=== PATIENT | female | born 1990 | race Caucasian/White ===

== ENCOUNTER 2017-03-06 14:13 | Inpatient (IN) | payer MEDICAID ==
[2017-03-06] VITALS (9 sets, daily range): BP systolic 76–97; BP diastolic 41–65
[~2017-03-06] VITALS: Ht 160 cm; Wt 43.2 kg
--- NOTE | 2017-03-06 14:58 | Emergency Room Report ---
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 Past Surgical History: unable to obtain Pertinent Family History: unable to obtain Social History: Denies: smoking, alcohol use, drug use Now: No Immunizations: UTD Reviewed Nursing Documentation: PMH: Agreed, PSxH: Agreed Nursing Documentation-PMH Past Medical History: No History, Except For History Of Psychiatric Problem: Yes - General Anxiety Disorder Hx Neurological Problems: Yes - MS Review of Systems All Other Systems: limited - patient not contributing Physical Exam Vital Signs Date Time Temp Pulse Resp B/P (MAP) Pulse Ox O2 Delivery O2 Flow Rate FiO2 03/06/17 14:29 113 16 137/83 96 Room Air Sp02 EP Interpretation: reviewed, normal General Appearance: normal inspection, well appearing, no apparent distress, alert, GCS 15, non-toxic, cachetic, thin, other - Intermittently combative and tearful Head: normocephalic, atraumatic Eyes: bilateral eye PERRL, bilateral eye EOMI ENT: normal ENT inspection, hearing grossly normal, normal pharynx, no angioedema, normal voice Neck: normal inspection, full range of motion, supple, thyroid normal, no meningismus, no bony tend Respiratory: normal inspection, lungs clear, normal breath sounds, no respiratory distress, no retraction, no wheezing Cardiovascular #1: regular rate, rhythm, no edema Gastrointestinal: normal inspection, normal bowel sounds, non tender, soft, no guarding, no hernia Genitourinary: no CVA tenderness Musculoskeletal: normal inspection, back normal, normal range of motion, Natalie' s Sign negative Neurologic: normal inspection, alert, oriented x3, responsive, frame aligner III-XII nml as tested, motor strength/tone normal, speech normal Psychiatric: normal inspection, judgement/insight normal, mood/affect normal Skin: normal inspection, normal color, no rash Medical Decision Making Diagnostic Impression: Primary Impression: Failure to thrive Qualified Codes: R62.7 - Adult failure to thrive Additional Impressions: NUBIA (acute kidney injury) Behavioral change UTI (urinary tract infection) Qualified Codes: N30.00 - Acute cystitis without hematuria ER Course Patient repeatedly combative to staff. De-escalation methods were unsusccessful Tried low dose haldol/ativan with only minor sedation. Was given additional dose Looks dehydrated clinically, was given NS and D5LR for hydration Labs: No leuks. H&h stable. Mild NUBIA Was hydrated in ED Urine: + for UTI Utox: negative Empiric Abx given Endorsed to Dr Jean for med/surg admission at 544p, EKG Diagnostic Results Rate: normal, other - PACs Rhythm: other - RAD, RVH, isolated Lead 3 TWI ASA given to the pt in ED: No Rhythm Strip Diag. Results EP Interpretation: yes Rate: 77 Rhythm: NSR, no PVC's, no ectopy Last Vital Signs Date Time Temp Pulse Resp B/P (MAP) Pulse Ox O2 Delivery O2 Flow Rate FiO2 03/06/17 14:29 113 16 137/83 96 Room Air Status: improved Disposition: ADMITTED INPATIENT Condition: Serious VANITA FERNANDES M.D. Mar 06, 2017 14:58
[2017-03-06] MEDS ORDERED: DiphenhydrAMINE 50mg/ml Inj IM ONE (15:00)
[2017-03-06] MEDS ORDERED: LORazepam Inj 2mg/ml 1ml IV ONE ×2 (15:00→19:45)
[2017-03-06] MEDS ORDERED: LORazepam Inj 2mg/ml 1ml IM ONE ×2 (15:00→16:00)
[2017-03-06] MEDS ORDERED: Haloperidol 5mg/ml Inj IM ONE ×2 (15:00→16:00)
--- NOTE | 2017-03-06 16:43 | Diagnostic Imaging Report ---
Indication: Shortness of breath Technique: One view of the chest Comparison: none Findings: There are thoracic and lumbar spinal fusion rods and evidence of extensive osseous fusion. Lungs and pleural spaces are clear. The heart is borderline enlarged. Impression: No acute process
[2017-03-06 17:33] LABS: ALANINE AMINOTRANSFERASE 10 U/L (3-33); ALBUMIN/GLOBULIN RATIO 1.6 (1.0-2.7); ANION GAP 16 (5-15); ASPARTATE AMINO TRANSFERASE 29 U/L (5-40); BASOPHILS % (AUTO) 0.9 % (0.0-2.0); CALCIUM 9.7 mg/dL (8.6-10.2); CARBON DIOXIDE 26 mEQ/L (20-30); CHLORIDE 103 mEQ/L (98-107); EOSINOPHILS % (AUTO) 0.3 % (0.0-3.0); GLOMERULAR FILTRATION RATE > 60 mL/min (>60); HEMOLYSIS 7; LYMPHOCYTES % (AUTO) 33.1 % (20.0-45.0); MEAN CORPUSCULAR HEMOGLOBIN 34.3 PG (27.0-31.0); MEAN CORPUSCULAR HGB CONC 35.8 G/DL (32.0-36.0); MEAN CORPUSCULAR VOLUME 96 FL (80-99); MEAN PLATELET VOLUME 8.4 FL (6.5-10.1); MONOCYTES % (AUTO) 7.1 % (1.0-10.0); NEUTROPHILS % (AUTO) 58.6 % (45.0-75.0); PLATELET COUNT 214 K/UL (150-450); POTASSIUM 3.6 mEQ/L (3.4-4.9); RED BLOOD COUNT 4.37 M/UL (4.20-5.40); SODIUM 145 mEQ/L (135-145); TOTAL PROTEIN 7.9 g/dL (6.6-8.7); WHITE BLOOD COUNT 7.8 K/UL (4.8-10.8)
[2017-03-06] MEDS ORDERED: Dextrose 5%/Lactated Ringer's 1,000 ML IV STA (17:47)
[2017-03-06 17:56] LABS: APPEARANCE,URINE VERY CLOUDY; KETONES,URINE 2+ (NEGATIVE); LEUKOCYTE ESTERASE ,URINE 1+ (NEGATIVE); NITRITE,URINE NEGATIVE (NEGATIVE); PH,URINE 6 (4.5-8.0); PROTEIN,URINE 1+ (NEGATIVE); UROBILINOGEN,URINE 1 MG/DL (0.0-1.0)
[2017-03-06 18:14] LABS: AMORPHOUS SEDIMENT,UR FEW /LPF; BACTERIA,URINE MODERATE /HPF; MUCUS,URINE MODERATE /LPF (NONE/OCC); SQUAMOUS EPITHELIAL CELL,UR FEW /LPF (NONE/OCC)
[2017-03-06] MEDS ORDERED: cefTRIAXone 1 GM in D5W 55 ML IVPB ONE (18:15)
[2017-03-06] MEDS ORDERED: UNOBMED (19:11)
[2017-03-06] MEDS ORDERED: LORazepam Inj 2mg/ml 1ml IV PRN (21:00)
[2017-03-06] MEDS: D5NS 1,000 ML IV SCH (21:48)
[2017-03-06] MEDS: Heparin 5000 units/ml inj SUBQ SCH (21:50)
[2017-03-06] MEDS ORDERED: Sodium Chloride 500ML 500 ML IV PRN (22:15)
[2017-03-06] MEDS ORDERED: Sodium Chloride 500ML 500 ML IV ONE (22:30)
[2017-03-07] VITALS (7 sets, daily range): BP systolic 82–109; BP diastolic 49–63
[2017-03-07] MEDS: D5NS 1,000 ML IV SCH ×2 (06:52→17:00)
[2017-03-07 06:57] LABS: MEAN CORPUSCULAR HGB CONC 33.8 G/DL (32.0-36.0); MEAN CORPUSCULAR VOLUME 98 FL (80-99); MEAN PLATELET VOLUME 8.6 FL (6.5-10.1); PLATELET COUNT 164 K/UL (150-450); RED BLOOD COUNT 3.75 M/UL (4.20-5.40); RED CELL DISTRIBUTION WIDTH 11.8 % (11.6-14.8); WHITE BLOOD COUNT 5.9 K/UL (4.8-10.8)
[2017-03-07 07:00] LABS: HEMOGLOBIN A1C 5.1 % (< 6.0)
[2017-03-07 07:10] LABS: ANION GAP 12 (5-15); CALCIUM 8.3 mg/dL (8.6-10.2); CARBON DIOXIDE 23 mEQ/L (20-30); CHLORIDE 112 mEQ/L (98-107); CHOLESTEROL 141 mg/dL (< 200); CHOLESTEROL/HDL RATIO 3.3 (3.3-4.4); CREATININE 0.8 mg/dL (0.5-0.9); GLOMERULAR FILTRATION RATE > 60 mL/min (>60); HEMOLYSIS 6; LDL CHOLESTEROL CALC 85 mg/dL (60-99); POTASSIUM 3.9 mEQ/L (3.4-4.9); SODIUM 147 mEQ/L (135-145)
[2017-03-07] MEDS: Heparin 5000 units/ml inj SUBQ SCH ×2 (09:44→21:00)
[2017-03-07 10:13] LABS: BAND NEUTROPHILS % (MANUAL) 0 % (0-8); BASOPHILS % (MANUAL) 1 % (0-2); EOSINOPHILS % (MANUAL) 0 % (0-3); LYMPHOCYTES % (MANUAL) 54 % (20-45); NEUTROPHILS % (MANUAL) 39 % (45-75); PLATELET ESTIMATE ADEQUATE; PLATELET MORPHOLOGY NORMAL; TOTAL CELLS COUNTED 100
--- NOTE | 2017-03-07 10:43 | History & Physical ---
History and Physical History & Physicial patient seen and examined. Dictation is completed [id number] Nicola Jean MD Mar 07, 2017 10:43
--- NOTE | 2017-03-07 11:14 | General Progress Note ---
Assessment/Plan Status: stable Assessment/Plan 1- Acute Encephalopathy 2- M.S: Dependent for all BLS 3. UTI 4. Anxiet/Depression 5. Malnutrition 6. GI-DVT prophylaxia Subjective ROS Limited/Unobtainable: Yes Allergies: Coded Allergies: UNABLE TO ASSESS (Unverified , 03/06/17) Objective Last 24 Hour Vital Signs Date Time Temp Pulse Resp B/P (MAP) Pulse Ox O2 Delivery O2 Flow Rate FiO2 03/07/17 08:00 98.2 100 20 105/60 96 Room Air 03/07/17 05:15 63 88/60 03/07/17 04:00 97.4 66 19 82/53 98 Room Air 03/07/17 03:10 71 88/55 03/06/17 23:50 97.6 71 18 92/58 99 Room Air 03/06/17 21:42 97.3 71 18 87/65 100 Room Air 03/06/17 20:20 98.5 92 14 90/53 99 Room Air 6.0 03/06/17 20:15 98.5 92 14 90/53 99 Room Air 03/06/17 18:30 120 16 91/63 97 Simple Mask 6.0 03/06/17 18:00 113 18 96/63 97 Simple Mask 6.0 03/06/17 17:50 113 16 88/58 97 Simple Mask 6.0 03/06/17 17:30 73 14 76/41 97 Room Air 03/06/17 17:15 75 16 81/45 96 Room Air 03/06/17 16:45 99 16 97/58 98 Room Air 03/06/17 14:29 113 16 137/83 96 Room Air Laboratory Tests 03/06/17 16:40: White Blood Count 7.8, Red Blood Count 4.37, Hemoglobin 15.0, Hematocrit 41.8, Mean Corpuscular Volume 96, Mean Corpuscular Hemoglobin 34.3H, Mean Corpuscular Hemoglobin Concent 35.8, Red Cell Distribution Width 12.0, Platelet Count 214, Mean Platelet Volume 8.4, Neutrophils (%) (Auto) 58.6, Lymphocytes (%) (Auto) 33.1, Monocytes (%) (Auto) 7.1, Eosinophils (%) (Auto) 0.3, Basophils (%) (Auto ) 0.9, Urine Color Yellow, Urine Appearance Very cloudy, Urine pH 6, Urine Specific Oscar 1.020, Urine Protein 1+H, Urine Glucose (UA) Negative, Urine Ketones 2+H, Urine Occult Blood Negative, Urine Nitrite Negative, Urine Bilirubin Negative, Urine Urobilinogen 1H, Urine Leukocyte Esterase 1+H, Urine RBC 2-4H, Urine WBC 5-10H, Urine Squamous Epithelial Cells Few, Urine Amorphous Sediment FewH, Urine Bacteria ModerateH, Urine Mucus ModerateH, Sodium Level 145 , Potassium Level 3.6, Chloride Level 103, Carbon Dioxide Level 26, Anion Gap 16H, Blood Urea Nitrogen 11, Creatinine 1.0H, Estimat Glomerular Filtration Rate > 60, Glucose Level 80, Calcium Level 9.7, Total Bilirubin 0.5, Aspartate Amino Transf (AST/SGOT) 29, Alanine Aminotransferase (ALT/SGPT) 10, Alkaline Phosphatase 65, Total Protein 7.9, Albumin 4.9, Globulin 3.0, Albumin/Globulin Ratio 1.6, Thyroid Stimulating Hormone (TSH) 2.870, Urine Opiates Screen Negative, Urine Barbiturates Screen Negative, Phencyclidine (PCP) Screen Negative, Urine Amphetamines Screen Negative, Urine Benzodiazepines Screen Negative, Urine Cocaine Screen Negative, Urine Marijuana (THC) Screen Negative 03/07/17 05:25: White Blood Count 5.9, Red Blood Count 3.75L, Hemoglobin 12.4, Hematocrit 36.6L , Mean Corpuscular Volume 98, Mean Corpuscular Hemoglobin 33.0H, Mean Corpuscular Hemoglobin Concent 33.8, Red Cell Distribution Width 11.8, Platelet Count 164, Mean Platelet Volume 8.6, Neutrophils (%) (Auto) , Lymphocytes (%) ( Auto) , Monocytes (%) (Auto) , Eosinophils (%) (Auto) , Basophils (%) (Auto) , Sodium Level 147H, Potassium Level 3.9, Chloride Level 112H, Carbon Dioxide Level 23, Anion Gap 12, Blood Urea Nitrogen 9, Creatinine 0.8, Estimat Glomerular Filtration Rate > 60, Glucose Level 71L, Calcium Level 8.3L, Differential Total Cells Counted 100, Neutrophils % (Manual) 39L, Lymphocytes % (Manual) 54H, Monocytes % (Manual) 6, Eosinophils % (Manual) 0, Basophils % ( Manual) 1, Band Neutrophils 0, Platelet Estimate Adequate, Platelet Morphology Normal, Red Blood Cell Morphology Normal, Hemoglobin A1c 5.1, Triglycerides Level 65, Cholesterol Level 141, LDL Cholesterol 85, HDL Cholesterol 43, Cholesterol/HDL Ratio 3.3 Height (Feet): 5 Height (Inches): 3.00 Weight (Pounds): 95 General Appearance: no apparent distress EENT: PERRL/EOMI Neck: supple Cardiovascular: normal rate Respiratory/Chest: lungs clear Abdomen: soft Extremities: other - atrophied musculature, Hyperreflexia and contracted extremitiesx4 Neurologic: disoriented Nicola Jean MD Mar 07, 2017 11:14
--- NOTE | 2017-03-07 12:35 | Consultation ---
Consultation HPI the pt is a 27 yo female with unknown medical hx the pt was combative in er and was admitted for failure to thrive. the pt was given haldol and ativan in er. the pt was sedated and was unable to participate in eval. the pt bp is stabilizing. head raised to prevent aspiration. d/w nurse. Allergies: Coded Allergies: UNABLE TO ASSESS (Unverified , 03/06/17) General Appearance: Fairly Groomed, Younger Orientation: Disoriented Intelligence: Average Impulse Control: Poor Assessment/Plan Status: unchanged Assessment/Plan failure to thrive -remeron 7.5 qhs -pt may not leave ama -will attempt to reeval Kerline Ray M.D. Mar 07, 2017 12:35
--- NOTE | 2017-03-07 16:27 | Consultation ---
Consult Note Consult Note ID DIC # [id number] STEVE JARRELL M.D. Mar 07, 2017 16:27
[2017-03-07] MEDS: cefTRIAXone 1 GM in D5W 55 ML IVPB SCH ×2 (18:00→18:04)
[2017-03-08] MEDS: D5NS 1,000 ML IV SCH ×3 (02:49→23:00)
--- NOTE | 2017-03-08 03:15 | Consultation ---
DATE OF CONSULTATION: INFECTIOUS DISEASES CONSULTATION CONSULTING PHYSICIAN: Rakesh Patel M.D. REQUESTING PHYSICIAN: Nicola Jean M.D. Reason For Consultation: Evaluation of the patient for UTI and failure to thrive. History Of Present Illness: The patient is a 27-year-old female with multiple medical problems, as listed below, who was admitted to this medical center with the impression of failure to thrive and urinary tract infection. The patient is a poor historian. An Infectious Diseases consultation has been requested for further evaluation and need for antibiotic treatment. PAST MEDICAL HISTORY: Significant for MS. MEDICATIONS: Rocephin. ALLERGIES: No known drug allergies. SOCIAL HISTORY: Unknown. FAMILY HISTORY: Unavailable. Review Of Systems: Limited. Much of the information that I was able to get is as mentioned above. PHYSICAL EXAMINATION: Vital Signs: Temperature 97.5 degrees, blood pressure 91/49, pulse 86, and respiratory rate 18. HEENT: No pale conjunctivae. No icterus. NECK: No lymphadenopathy. CHEST: Clear. HEART: S1 and S2. ABDOMEN: Soft. EXTREMITIES: No cyanosis. NEUROLOGIC: Awake. Poor historian. Laboratory and diagnostic Data: WBC of 5.9, hemoglobin 12, and platelets 164,000. UA shows 5 to 10 white blood cells and 2 to 4 red blood cells. BUN 9 and creatinine 0.8. Liver function tests are unremarkable. Urine culture, no growth so far. Chest x-ray, [facility]. ASSESSMENT: The patient is a 27-year-old female with 1. Multiple sclerosis. 2. Failure to thrive. 3. Probable urinary tract infection/pyuria. PLAN: 1. We will continue the patient on IV Rocephin. 2. Monitor CBC. 3. Monitor cultures (urine). 4. Based on the patient's clinical course and labs, we will do further recommendation. Thank you, Dr. Jean, for allowing me to participate in the care of this patient. I will follow the patient with you during this hospitalization. Rakesh Patel M.D. DR: ALDA JOB#: [id number] CC:
[2017-03-08 04:00] VITALS: BP 103/63
[2017-03-08 07:14] LABS: ANION GAP 11 (5-15); CALCIUM 8.8 mg/dL (8.6-10.2); CARBON DIOXIDE 26 mEQ/L (20-30); CHLORIDE 105 mEQ/L (98-107); CREATININE 0.9 mg/dL (0.5-0.9); GLOMERULAR FILTRATION RATE > 60 mL/min (>60); HEMOLYSIS 4; POTASSIUM 3.9 mEQ/L (3.4-4.9); SODIUM 142 mEQ/L (135-145)
[2017-03-08 07:22] LABS: BASOPHILS % (AUTO) 1.1 % (0.0-2.0); EOSINOPHILS % (AUTO) 1.2 % (0.0-3.0); LYMPHOCYTES % (AUTO) 48.3 % (20.0-45.0); MEAN CORPUSCULAR HEMOGLOBIN 33.9 PG (27.0-31.0); MEAN CORPUSCULAR HGB CONC 35.4 G/DL (32.0-36.0); MEAN CORPUSCULAR VOLUME 96 FL (80-99); MEAN PLATELET VOLUME 9.8 FL (6.5-10.1); MONOCYTES % (AUTO) 6.8 % (1.0-10.0); NEUTROPHILS % (AUTO) 42.6 % (45.0-75.0); PLATELET COUNT 171 K/UL (150-450); RED BLOOD COUNT 3.62 M/UL (4.20-5.40); WHITE BLOOD COUNT 5.5 K/UL (4.8-10.8)
[2017-03-08 08:00] VITALS: BP 98/70
--- NOTE | 2017-03-08 08:00 | History and Physical Report ---
DATE OF ADMISSION: 03/06/2017 SOURCE OF INFORMATION: The patient and EMR. History of Present Illness: The patient is an unfortunate 27-year-old female with most likely severe multiple sclerosis. At the baseline, the patient is wheelchair bound. She is dependent for ADLs and BLS. At the time of evaluation, the patient does not talk more than 1 or 2 words. The patient was evaluated in the office. The patient was transferred by the banquet line cook of the [facility] to the office. At the time of evaluation, the patient appears very cachectic, however, limited evaluation as the patient does not follow the communications and orders for the exams. However, there are no reported signs of seizure disorder or abnormal bleeding. Past Medical History: Multiple sclerosis, weight loss, malnourishment, and psychiatric disorder. PAST SURGICAL HISTORY: Unknown. Medications: Current outpatient medications are Remeron 15 mg p.o. at bedtime. ALLERGIES: Not obtainable. Social History: The patient is currently a resident of [facility]. The patient reported to suffer from psychiatric problem. She has been reported to lose significant amount of weight. No documented history of illicit drugs, alcohol, or smoking has been reported. FAMILY HISTORY: Cannot be obtained. Review of Systems: All 12 elements were limited with the above-mentioned limitations. Pertinent positives and negatives reported as above. PHYSICAL EXAMINATION: Vital Signs: Blood pressure 85/pulse, pulse rate 110, respiratory rate 18, temperature 98.5. Head And Neck: Atraumatic and normocephalic. Sunken eyes, general weakness, and loss of muscle mass. ABDOMEN: Soft. No organomegaly. Musculoskeletal: Atrophied musculatures. Limited evaluation as the patient is not following the commands; however, the upper and lower extremities are all contracted. Neurologic: The patient is awake, alert and oriented x1. Laboratory And Diagnostic Data: Labs dated 03/06/2017 shows WBC 7.8, hemoglobin 15, and platelets 214,000. Sodium 145, potassium 3.6, BUN 11, and creatinine 1. Urinalysis shows moderate bacteria and WBC. Toxicology is negative. ASSESSMENT: 1. Acute encephalopathy (the patient's baseline is talking in full sentences). 2. Urinary tract infection. 3. Malnourishment. 4. Multiple sclerosis. 5. Wheelchair bound. 6. Psychiatric disorder. 7. Gastrointestinal and deep vein thrombosis prophylaxis. Plan of Care: Psychiatry and Neurology have been consulted. We will resume shelter medications. We will use anxiolytics p.r.n. to control agitation. Initiate IV hydration. Consult quality system manager and social work associate. Continue with the IV antibiotic ceftriaxone. Nicola Jean M.D. DR: SCOTT JOB#: [id number] CC: MAHAMED
[2017-03-08] MEDS: Heparin 5000 units/ml inj SUBQ SCH ×2 (09:00→21:31)
[2017-03-08 12:00] VITALS: BP 115/70
--- NOTE | 2017-03-08 13:09 | General Progress Note ---
Progress Note Progress Note Bioethics consult requested by Dr. Jean with respect to appropriateness of hospice consultation. Very little historical information available about this 27 year old with presumed rapidly progressive MS transferred, cachectic and uncommunicative, from a [facility] where she has resided for 9 months. No family or friend/visitors identified who can provide history, no prior mri scans , data on course of her disease. Neuro consult here is pending. It is diffcult to recommend hospice for a 27 year old without more information on prior diagnosis, course, treatment if any. Suggest that neuro see her and try to obtain some prior medical history. If neuro determines from prior diagnostic studies, treatments, scans, that she has advanced disease with irreversible cognitive and motor function and that there is no prognosis for improvement, hospice would be appropriate. It is difficult to recommend hospice for a 27 year old without more information. It is also not clear why she was apparently abandoned at the [facility]. I would like to know where she resided prior to [facility]. [place] is trying to contact any possible relation who could participate in the decision. At the moment it does not appear that there is a known relative. Vanita Dunn MD Bioethics Committee Chair VANITA DUNN Mar 08, 2017 13:09
[2017-03-08] MEDS: Levofloxacin 500mg tab ORAL SCH (13:57)
[2017-03-08 16:00] VITALS: BP 94/54
[2017-03-08] MEDS: cefTRIAXone 1 GM in D5W 55 ML IVPB SCH (18:00)
--- NOTE | 2017-03-08 18:44 | Consultation ---
History of Present Illness General Date patient seen: Mar 08, 2017 Chief Complaint: General Complaint Referring physician: Dr Jean Reason for Consultation: hospice evaluation Present Illness HPI 27 year old female with hx of MS who is refusing to eat. She speaks basic words. Most likely not competent. Awake. looks chronically ill and cachectic. Allergies: Coded Allergies: UNABLE TO ASSESS (Unverified , 03/06/17) Medication History Miscellaneous Medications Unable to Obtain Medications (Unable To Obtain Meds), (Reported) Patient History Healthcare decision maker Resuscitation status Full Code Advanced Directive on File No Past Medical/Surgical History Past Medical/Surgical History: (1) Multiple sclerosis Review of Systems All Other Systems: negative except mentioned in HPI Physical Exam General Appearance: WD/WN Lines, tubes and drains: peripheral, central line HEENT: normocephalic, atraumatic Neck: non-tender, normal alignment Respiratory/Chest: chest wall non-tender, lungs clear Breasts: no masses Cardiovascular/Chest: normal peripheral pulses Abdomen: normal bowel sounds Genitourinary/Rectal: normal genital exam Extremities: normal range of motion, non-tender Skin Exam: normal pigmentation Neurologic: 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 II-XII grossly normal Last 24 Hour Vital Signs Date Time Temp Pulse Resp B/P (MAP) Pulse Ox O2 Delivery O2 Flow Rate FiO2 03/08/17 16:00 97.5 93 16 94/54 95 03/08/17 12:00 97.9 85 18 115/70 95 Room Air 03/08/17 08:00 97.9 97 18 98/70 95 Room Air 03/08/17 04:00 97.6 63 19 103/63 96 Room Air 03/07/17 19:55 97.9 57 20 102/62 97 Room Air Intake and Output 03/08/17 03/09/17 19:00 07:00 Intake Total 240 ml Output Total 500 ml Balance -260 ml Intake Oral 240 ml Output Urine Total 500 ml Laboratory Tests Test 03/08/17 05:25 White Blood Count 5.5 K/UL (4.8-10.8) Red Blood Count 3.62 M/UL (4.20-5.40) L Hemoglobin 12.3 G/DL (12.0-16.0) Hematocrit 34.7 % (37.0-47.0) L Mean Corpuscular Volume 96 FL (80-99) Mean Corpuscular Hemoglobin 33.9 PG (27.0-31.0) H Mean Corpuscular Hemoglobin Concent 35.4 G/DL (32.0-36.0) Red Cell Distribution Width 12.0 % (11.6-14.8) Platelet Count 171 K/UL (150-450) Mean Platelet Volume 9.8 FL (6.5-10.1) Neutrophils (%) (Auto) 42.6 % (45.0-75.0) L Lymphocytes (%) (Auto) 48.3 % (20.0-45.0) H Monocytes (%) (Auto) 6.8 % (1.0-10.0) Eosinophils (%) (Auto) 1.2 % (0.0-3.0) Basophils (%) (Auto) 1.1 % (0.0-2.0) Sodium Level 142 mEQ/L (135-145) Potassium Level 3.9 mEQ/L (3.4-4.9) Chloride Level 105 mEQ/L (98-107) Carbon Dioxide Level 26 mEQ/L (20-30) Anion Gap 11 (5-15) Blood Urea Nitrogen 5 mg/dL (7-23) L Creatinine 0.9 mg/dL (0.5-0.9) Estimat Glomerular Filtration Rate > 60 mL/min (>60) Glucose Level 93 mg/dL (74-106) Calcium Level 8.8 mg/dL (8.6-10.2) Height (Feet): 5 Height (Inches): 3.00 Weight (Pounds): 95 Medications Current Medications Medications (Trade) Dose Ordered Sig/Nancy Route PRN Reason Start Time Stop Time Status Last Admin Dose Admin Acetaminophen (Tylenol) 650 mg Q4H PRN ORAL MILD PAIN / T>100.5 03/06/17 21:00 04/05/17 20:59 Ceftriaxone Sodium 1 gm/ Dextrose 55 ml @ 110 mls/hr Q24H IVPB 03/07/17 18:00 03/14/17 17:59 Dextrose/Sodium Chloride 1,000 ml @ 100 mls/hr Q10H IV 03/06/17 21:00 04/05/17 20:59 03/07/17 06:52 Heparin Sodium (Porcine) (Heparin 5000 units/ml) 5,000 units EVERY 12 HOURS SUBQ 03/06/17 21:00 04/05/17 20:59 03/07/17 09:44 Levofloxacin (Levaquin) 500 mg DAILY ORAL 03/08/17 13:00 03/15/17 12:59 03/08/17 13:57 Lorazepam (Ativan 2mg/ml 1ml) 1 mg Q6H PRN IV For Anxiety 03/06/17 21:00 03/13/17 20:59 Mirtazapine (Remeron) 7.5 mg QHS ORAL 03/07/17 21:00 04/06/17 20:59 Ranitidine HCl (Zantac) 150 mg TWICE A DAY ORAL 03/07/17 09:00 04/06/17 08:59 03/07/17 09:45 Assessment/Plan Problem List: (1) Multiple sclerosis ICD Codes: G35 - Multiple sclerosis SNOMED: 32016353 (2) Failure to thrive SNOMED: 53542605 Qualifiers: Qualified Codes: R62.7 - Adult failure to thrive Assessment/Plan suggest to look for relatives or next of kin etc Bioethics consult psychiatry evaluation neuro evaluation CHRISTIAN BELL Mar 08, 2017 18:44
--- NOTE | 2017-03-08 19:19 | General Progress Note ---
Assessment/Plan Status: unchanged Assessment/Plan 1. Acute encephalopathy 2. Urinary tract infection. 3. Malnourishment. 4. residential-NeuroMusclar disorder: reported Multiple sclerosis. 5. Wheelchair bound. 6. Psychiatric disorder. 7. Declined Cognition- Not capable making medical decision 8. Dysphagia 9. Gastrointestinal and deep vein thrombosis prophylaxis. Plan: Pending Gloria lopez Bioethic input reviewed Palliative input is reviewed SW to locate probable Next Keen Swallow and Speech Note reviewed Subjective ROS Limited/Unobtainable: Yes Allergies: Coded Allergies: UNABLE TO ASSESS (Unverified , 03/06/17) Objective Last 24 Hour Vital Signs Date Time Temp Pulse Resp B/P (MAP) Pulse Ox O2 Delivery O2 Flow Rate FiO2 03/08/17 16:00 97.5 93 16 94/54 95 03/08/17 12:00 97.9 85 18 115/70 95 Room Air 03/08/17 08:00 97.9 97 18 98/70 95 Room Air 03/08/17 04:00 97.6 63 19 103/63 96 Room Air 03/07/17 19:55 97.9 57 20 102/62 97 Room Air Intake and Output 03/08/17 03/09/17 19:00 07:00 Intake Total 240 ml Output Total 500 ml Balance -260 ml Intake Oral 240 ml Output Urine Total 500 ml Laboratory Tests 03/08/17 05:25: White Blood Count 5.5, Red Blood Count 3.62L, Hemoglobin 12.3, Hematocrit 34.7L , Mean Corpuscular Volume 96, Mean Corpuscular Hemoglobin 33.9H, Mean Corpuscular Hemoglobin Concent 35.4, Red Cell Distribution Width 12.0, Platelet Count 171, Mean Platelet Volume 9.8, Neutrophils (%) (Auto) 42.6L, Lymphocytes ( %) (Auto) 48.3H, Monocytes (%) (Auto) 6.8, Eosinophils (%) (Auto) 1.2, Basophils (%) (Auto) 1.1, Sodium Level 142, Potassium Level 3.9, Chloride Level 105, Carbon Dioxide Level 26, Anion Gap 11, Blood Urea Nitrogen 5L, Creatinine 0.9, Estimat Glomerular Filtration Rate > 60, Glucose Level 93, Calcium Level 8.8 Height (Feet): 5 Height (Inches): 3.00 Weight (Pounds): 95 General Appearance: no apparent distress, cachetic EENT: PERRL/EOMI Neck: muscle spasm Extremities: other - contracted hyperReflexia in all extremities Neurologic: disoriented, other - selective aphasia. Dysarthria Objective comfortable. whispers in limited worded sentences. Nicola Jean MD Mar 08, 2017 19:19
[2017-03-08 20:00] VITALS: BP 118/70
--- NOTE | 2017-03-08 21:20 | Infectious Diseases Prog Note ---
Assessment/Plan Assessment/Plan ASSESSMENT: The patient is a 27-year-old female with Multiple sclerosis. Failure to thrive. Probable urinary tract infection/pyuria. PLAN: change IV Rocephin d # 2 ( pt refused ) , to Levaquin d# 1 / 3 Monitor CBC. Monitor cultures (urine) Subjective Constitutional: Denies: no symptoms, fever, chills, fatigue, anorexia, drenching sweats, other Allergies: Coded Allergies: UNABLE TO ASSESS (Unverified , 03/06/17) Subjective refusing IV Rocephin Objective Vital Signs Last 24 Hour Vital Signs Date Time Temp Pulse Resp B/P (MAP) Pulse Ox O2 Delivery O2 Flow Rate FiO2 03/08/17 20:00 98.2 99 18 118/70 96 Room Air 03/08/17 16:00 97.5 93 16 94/54 95 03/08/17 12:00 97.9 85 18 115/70 95 Room Air 03/08/17 08:00 97.9 97 18 98/70 95 Room Air 03/08/17 04:00 97.6 63 19 103/63 96 Room Air Height (Feet): 5 Height (Inches): 3.00 Weight (Pounds): 95 HEENT: atraumatic Respiratory/Chest: no respiratory distress Cardiovascular: regularly irregular Abdomen: no organomegaly Microbiology Date/Time Source Procedure Growth Status 03/06/17 19:36 Nasal Nares MRSA Culture - Final NO METHICILLIN RESISTANT STAPH AUREUS... Complete 03/06/17 16:40 Urine,Clean Catch Urine Culture - Preliminary NO GROWTH AFTER 24 HOURS Resulted 03/06/17 19:36 Rectum VRE Culture - Final NO VANCOMYCIN RESISTANT ENTEROCOCCUS ... Complete Laboratory Tests Test 03/08/17 05:25 White Blood Count 5.5 K/UL (4.8-10.8) Red Blood Count 3.62 M/UL (4.20-5.40) L Hemoglobin 12.3 G/DL (12.0-16.0) Hematocrit 34.7 % (37.0-47.0) L Mean Corpuscular Volume 96 FL (80-99) Mean Corpuscular Hemoglobin 33.9 PG (27.0-31.0) H Mean Corpuscular Hemoglobin Concent 35.4 G/DL (32.0-36.0) Red Cell Distribution Width 12.0 % (11.6-14.8) Platelet Count 171 K/UL (150-450) Mean Platelet Volume 9.8 FL (6.5-10.1) Neutrophils (%) (Auto) 42.6 % (45.0-75.0) L Lymphocytes (%) (Auto) 48.3 % (20.0-45.0) H Monocytes (%) (Auto) 6.8 % (1.0-10.0) Eosinophils (%) (Auto) 1.2 % (0.0-3.0) Basophils (%) (Auto) 1.1 % (0.0-2.0) Sodium Level 142 mEQ/L (135-145) Potassium Level 3.9 mEQ/L (3.4-4.9) Chloride Level 105 mEQ/L (98-107) Carbon Dioxide Level 26 mEQ/L (20-30) Anion Gap 11 (5-15) Blood Urea Nitrogen 5 mg/dL (7-23) L Creatinine 0.9 mg/dL (0.5-0.9) Estimat Glomerular Filtration Rate > 60 mL/min (>60) Glucose Level 93 mg/dL (74-106) Calcium Level 8.8 mg/dL (8.6-10.2) Current Medications Medications (Trade) Dose Ordered Sig/Nancy Route PRN Reason Start Time Stop Time Status Last Admin Dose Admin Acetaminophen (Tylenol) 650 mg Q4H PRN ORAL MILD PAIN / T>100.5 03/06/17 21:00 04/05/17 20:59 Ceftriaxone Sodium 1 gm/ Dextrose 55 ml @ 110 mls/hr Q24H IVPB 03/07/17 18:00 03/14/17 17:59 Dextrose/Sodium Chloride 1,000 ml @ 100 mls/hr Q10H IV 03/06/17 21:00 04/05/17 20:59 03/07/17 06:52 Heparin Sodium (Porcine) (Heparin 5000 units/ml) 5,000 units EVERY 12 HOURS SUBQ 03/06/17 21:00 04/05/17 20:59 03/07/17 09:44 Levofloxacin (Levaquin) 500 mg DAILY ORAL 03/08/17 13:00 03/15/17 12:59 03/08/17 13:57 Lorazepam (Ativan 2mg/ml 1ml) 1 mg Q6H PRN IV For Anxiety 03/06/17 21:00 03/13/17 20:59 Mirtazapine (Remeron) 7.5 mg QHS ORAL 03/07/17 21:00 04/06/17 20:59 Ranitidine HCl (Zantac) 150 mg TWICE A DAY ORAL 03/07/17 09:00 04/06/17 08:59 03/07/17 09:45 STEVE JARRELL M.D. Mar 08, 2017 21:20
--- NOTE | 2017-03-08 23:07 | General Progress Note ---
Assessment/Plan Status: stable Assessment/Plan decrease agitation currently calm and cooperative. eating when fed. R/o DD pt may not leave [facility] lacks capacity may consider zyprexa Subjective Allergies: Coded Allergies: UNABLE TO ASSESS (Unverified , 03/06/17) Subjective the pt is more alert and ate when the sitter fed her. the pt appears to be DD, developmental disable. called b&c to gather info. left a msg. the pt was able to read psychomotor retardation and was slurred. the pt stated that she has family but didn't know where they were. Objective Last 24 Hour Vital Signs Date Time Temp Pulse Resp B/P (MAP) Pulse Ox O2 Delivery O2 Flow Rate FiO2 03/08/17 20:00 98.2 99 18 118/70 96 Room Air 03/08/17 16:00 97.5 93 16 94/54 95 03/08/17 12:00 97.9 85 18 115/70 95 Room Air 03/08/17 08:00 97.9 97 18 98/70 95 Room Air 03/08/17 04:00 97.6 63 19 103/63 96 Room Air Intake and Output 03/08/17 03/09/17 19:00 07:00 Intake Total 480 ml Output Total 500 ml Balance -20 ml Intake Oral 480 ml Output Urine Total 500 ml Laboratory Tests 03/08/17 05:25: White Blood Count 5.5, Red Blood Count 3.62L, Hemoglobin 12.3, Hematocrit 34.7L , Mean Corpuscular Volume 96, Mean Corpuscular Hemoglobin 33.9H, Mean Corpuscular Hemoglobin Concent 35.4, Red Cell Distribution Width 12.0, Platelet Count 171, Mean Platelet Volume 9.8, Neutrophils (%) (Auto) 42.6L, Lymphocytes ( %) (Auto) 48.3H, Monocytes (%) (Auto) 6.8, Eosinophils (%) (Auto) 1.2, Basophils (%) (Auto) 1.1, Sodium Level 142, Potassium Level 3.9, Chloride Level 105, Carbon Dioxide Level 26, Anion Gap 11, Blood Urea Nitrogen 5L, Creatinine 0.9, Estimat Glomerular Filtration Rate > 60, Glucose Level 93, Calcium Level 8.8 Height (Feet): 5 Height (Inches): 3.00 Weight (Pounds): 95 General Appearance: no apparent distress, alert, thin Neurologic: alert, oriented x 3, responsive, depressed affect Kerline Ray M.D. Mar 08, 2017 23:07
[2017-03-08 23:54] VITALS: BP 103/54
[2017-03-09 04:00] VITALS: BP 112/69
[2017-03-09 07:20] LABS: BASOPHILS % (AUTO) 0.9 % (0.0-2.0); EOSINOPHILS % (AUTO) 0.9 % (0.0-3.0); LYMPHOCYTES % (AUTO) 45.6 % (20.0-45.0); MEAN CORPUSCULAR HEMOGLOBIN 33.8 PG (27.0-31.0); MEAN CORPUSCULAR HGB CONC 34.7 G/DL (32.0-36.0); MEAN CORPUSCULAR VOLUME 97 FL (80-99); MEAN PLATELET VOLUME 9.1 FL (6.5-10.1); MONOCYTES % (AUTO) 9.2 % (1.0-10.0); NEUTROPHILS % (AUTO) 43.4 % (45.0-75.0); PLATELET COUNT 177 K/UL (150-450); RED BLOOD COUNT 3.77 M/UL (4.20-5.40); RED CELL DISTRIBUTION WIDTH 11.8 % (11.6-14.8); WHITE BLOOD COUNT 6.6 K/UL (4.8-10.8)
[2017-03-09 07:29] LABS: ANION GAP 12 (5-15); CALCIUM 9.4 mg/dL (8.6-10.2); CARBON DIOXIDE 26 mEQ/L (20-30); CHLORIDE 104 mEQ/L (98-107); CREATININE 0.8 mg/dL (0.5-0.9); GLOMERULAR FILTRATION RATE > 60 mL/min (>60); HEMOLYSIS 5; POTASSIUM 3.8 mEQ/L (3.4-4.9); SODIUM 142 mEQ/L (135-145)
[2017-03-09 08:50] VITALS: BP 107/62
[2017-03-09] MEDS: D5NS 1,000 ML IV SCH ×2 (09:00→19:00)
[2017-03-09] MEDS: Heparin 5000 units/ml inj SUBQ SCH ×2 (09:00→21:00)
[2017-03-09] MEDS: Levofloxacin 500mg tab ORAL SCH (09:51)
--- NOTE | 2017-03-09 10:35 | General Progress Note ---
Assessment/Plan Status: stable Assessment/Plan 1. Acute encephalopathy 2. Urinary tract infection. 3. Malnourishment. 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 5. Wheelchair bound. 6. Psychiatric disorder. 7. Declined Cognition- Not capable making medical decision 8. Dysphagia 9. Gastrointestinal and deep vein thrombosis prophylaxis. Plan: Pending Gloria lopez Bioethic input reviewed Palliative input is reviewed SW to locate probable Next Keen Subjective ROS Limited/Unobtainable: Yes Constitutional: Reports: no symptoms Cardiovascular: Reports: no symptoms Allergies: Coded Allergies: UNABLE TO ASSESS (Unverified , 03/06/17) Objective Last 24 Hour Vital Signs Date Time Temp Pulse Resp B/P (MAP) Pulse Ox O2 Delivery O2 Flow Rate FiO2 03/09/17 08:50 97.0 87 18 107/62 100 Room Air 03/09/17 04:00 98.0 94 18 112/69 97 Room Air 03/08/17 23:54 96.8 90 18 103/54 98 Room Air 03/08/17 20:00 98.2 99 18 118/70 96 Room Air 03/08/17 16:00 97.5 93 16 94/54 95 03/08/17 12:00 97.9 85 18 115/70 95 Room Air Laboratory Tests 03/09/17 05:30: White Blood Count 6.6, Red Blood Count 3.77L, Hemoglobin 12.7, Hematocrit 36.7L , Mean Corpuscular Volume 97, Mean Corpuscular Hemoglobin 33.8H, Mean Corpuscular Hemoglobin Concent 34.7, Red Cell Distribution Width 11.8, Platelet Count 177, Mean Platelet Volume 9.1, Neutrophils (%) (Auto) 43.4L, Lymphocytes ( %) (Auto) 45.6H, Monocytes (%) (Auto) 9.2, Eosinophils (%) (Auto) 0.9, Basophils (%) (Auto) 0.9, Sodium Level 142, Potassium Level 3.8, Chloride Level 104, Carbon Dioxide Level 26, Anion Gap 12, Blood Urea Nitrogen 5L, Creatinine 0.8, Estimat Glomerular Filtration Rate > 60, Glucose Level 87, Calcium Level 9.4 Height (Feet): 5 Height (Inches): 3.00 Weight (Pounds): 95 General Appearance: no apparent distress EENT: PERRL/EOMI Neck: supple Cardiovascular: normal rate Respiratory/Chest: lungs clear Abdomen: soft Extremities: other - contracted extrmities x4 Neurologic: other - decline cognition. whispers in sentences today Objective comfortable. whispers in limited worded sentences. Nicola Jean MD Mar 09, 2017 10:35
[2017-03-09 12:14] VITALS: BP 90/49
--- NOTE | 2017-03-09 12:19 | Neurology Progress Note ---
Interim History Interim History ROS Limited/Unobtainable: Yes Objective Physical Exam Last Vital Signs Date Time Temp Pulse Resp B/P (MAP) Pulse Ox O2 Delivery O2 Flow Rate FiO2 03/09/17 12:14 97.0 94 19 90/49 100 Room Air 03/06/17 20:20 6.0 Laboratory Tests Test 03/09/17 05:30 White Blood Count 6.6 K/UL (4.8-10.8) Red Blood Count 3.77 M/UL (4.20-5.40) L Hemoglobin 12.7 G/DL (12.0-16.0) Hematocrit 36.7 % (37.0-47.0) L Mean Corpuscular Volume 97 FL (80-99) Mean Corpuscular Hemoglobin 33.8 PG (27.0-31.0) H Mean Corpuscular Hemoglobin Concent 34.7 G/DL (32.0-36.0) Red Cell Distribution Width 11.8 % (11.6-14.8) Platelet Count 177 K/UL (150-450) Mean Platelet Volume 9.1 FL (6.5-10.1) Neutrophils (%) (Auto) 43.4 % (45.0-75.0) L Lymphocytes (%) (Auto) 45.6 % (20.0-45.0) H Monocytes (%) (Auto) 9.2 % (1.0-10.0) Eosinophils (%) (Auto) 0.9 % (0.0-3.0) Basophils (%) (Auto) 0.9 % (0.0-2.0) Sodium Level 142 mEQ/L (135-145) Potassium Level 3.8 mEQ/L (3.4-4.9) Chloride Level 104 mEQ/L (98-107) Carbon Dioxide Level 26 mEQ/L (20-30) Anion Gap 12 (5-15) Blood Urea Nitrogen 5 mg/dL (7-23) L Creatinine 0.8 mg/dL (0.5-0.9) Estimat Glomerular Filtration Rate > 60 mL/min (>60) Glucose Level 87 mg/dL (74-106) Calcium Level 9.4 mg/dL (8.6-10.2) Impression/Recommendations Status: stable Recommendations #[id number] LEONORA HOOKER Mar 09, 2017 12:19
[2017-03-09 12:27] VITALS: BP 100/62
[2017-03-09] MEDS ORDERED: Haloperidol 5mg/ml Inj IM ONE (14:10)
[2017-03-09] MEDS: LORazepam Inj 2mg/ml 1ml IM ONE ×2 (14:15→15:57)
--- NOTE | 2017-03-09 16:32 | Pulmonology Progress Note ---
Assessment/Plan Problems: (1) Multiple sclerosis (2) Failure to thrive Assessment/Plan MRI done results pending pt declined Hospice wants to go back to halfway in [place] Subjective ROS Limited/Unobtainable: No Constitutional: Reports: no symptoms HEENT: Repors: no symptoms Respiratory: Reports: no symptoms Cardiovascular: Reports: no symptoms Gastrointestinal/Abdominal: Reports: no symptoms Allergies: Coded Allergies: UNABLE TO ASSESS (Unverified , 03/06/17) Objective Last 24 Hour Vital Signs Date Time Temp Pulse Resp B/P (MAP) Pulse Ox O2 Delivery O2 Flow Rate FiO2 03/09/17 12:27 97.0 91 19 100/62 100 Room Air 03/09/17 08:50 97.0 87 18 107/62 100 Room Air 03/09/17 04:00 98.0 94 18 112/69 97 Room Air 03/08/17 23:54 96.8 90 18 103/54 98 Room Air 03/08/17 20:00 98.2 99 18 118/70 96 Room Air General Appearance: WD/WN HEENT: normocephalic, atraumatic Respiratory/Chest: chest wall non-tender, lungs clear Breasts: no masses Cardiovascular: normal peripheral pulses Abdomen: soft, non tender, non distended Genitourinary: normal external genitalia Extremities: no clubbing Skin: no lesions Microbiology Date/Time Source Procedure Growth Status 03/06/17 19:45 Nasal Not Otherwise Specified MRSA Culture - Final NO METHICILLIN RESISTANT STAPH AUREUS... Complete 03/06/17 19:36 Nasal Nares MRSA Culture - Final NO METHICILLIN RESISTANT STAPH AUREUS... Complete 03/06/17 16:40 Urine,Clean Catch Urine Culture - Final Mixed Urogenital Contaminants Complete 03/06/17 19:36 Rectum VRE Culture - Final NO VANCOMYCIN RESISTANT ENTEROCOCCUS ... Complete Laboratory Tests 03/09/17 05:30: White Blood Count 6.6, Red Blood Count 3.77L, Hemoglobin 12.7, Hematocrit 36.7L , Mean Corpuscular Volume 97, Mean Corpuscular Hemoglobin 33.8H, Mean Corpuscular Hemoglobin Concent 34.7, Red Cell Distribution Width 11.8, Platelet Count 177, Mean Platelet Volume 9.1, Neutrophils (%) (Auto) 43.4L, Lymphocytes ( %) (Auto) 45.6H, Monocytes (%) (Auto) 9.2, Eosinophils (%) (Auto) 0.9, Basophils (%) (Auto) 0.9, Sodium Level 142, Potassium Level 3.8, Chloride Level 104, Carbon Dioxide Level 26, Anion Gap 12, Blood Urea Nitrogen 5L, Creatinine 0.8, Estimat Glomerular Filtration Rate > 60, Glucose Level 87, Calcium Level 9.4 Current Medications Medications (Trade) Dose Ordered Sig/Nancy Route PRN Reason Start Time Stop Time Status Last Admin Dose Admin Acetaminophen (Tylenol) 650 mg Q4H PRN ORAL MILD PAIN / T>100.5 03/06/17 21:00 04/05/17 20:59 Ceftriaxone Sodium 1 gm/ Dextrose 55 ml @ 110 mls/hr Q24H IVPB 03/07/17 18:00 03/14/17 17:59 Dextrose/Sodium Chloride 1,000 ml @ 100 mls/hr Q10H IV 03/06/17 21:00 04/05/17 20:59 03/07/17 06:52 Heparin Sodium (Porcine) (Heparin 5000 units/ml) 5,000 units EVERY 12 HOURS SUBQ 03/06/17 21:00 04/05/17 20:59 03/08/17 21:31 Levofloxacin (Levaquin) 500 mg DAILY ORAL 03/08/17 13:00 03/15/17 12:59 03/09/17 09:51 Lorazepam (Ativan 2mg/ml 1ml) 1 mg Q6H PRN IV For Anxiety 03/06/17 21:00 03/13/17 20:59 Mirtazapine (Remeron) 7.5 mg QHS ORAL 03/07/17 21:00 04/06/17 20:59 03/08/17 21:25 Ranitidine HCl (Zantac) 150 mg TWICE A DAY ORAL 03/07/17 09:00 04/06/17 08:59 03/09/17 09:51 CHRISTIAN BELL Mar 09, 2017 16:32
[2017-03-09] MEDS: cefTRIAXone 1 GM in D5W 55 ML IVPB SCH (18:00)
--- NOTE | 2017-03-09 18:04 | General Progress Note ---
Assessment/Plan Status: stable, progressing Assessment/Plan decrease agitation currently calm and cooperative. eating more. DD pt may not leave [facility] lacks capacity cont remeron Subjective Constitutional: Reports: malaise, weakness Gastrointestinal/Abdominal: Reports: poor appetite Neurologic/Psychiatric: Reports: emotional problems Allergies: Coded Allergies: UNABLE TO ASSESS (Unverified , 03/06/17) Subjective the pt is dd. the pt stated that she has family but didn't know where they were. today still says dont know to most questions. ?ms? mri was done Objective Last 24 Hour Vital Signs Date Time Temp Pulse Resp B/P (MAP) Pulse Ox O2 Delivery O2 Flow Rate FiO2 03/09/17 12:27 97.0 91 19 100/62 100 Room Air 03/09/17 08:50 97.0 87 18 107/62 100 Room Air 03/09/17 04:00 98.0 94 18 112/69 97 Room Air 03/08/17 23:54 96.8 90 18 103/54 98 Room Air 03/08/17 20:00 98.2 99 18 118/70 96 Room Air Laboratory Tests 03/09/17 05:30: White Blood Count 6.6, Red Blood Count 3.77L, Hemoglobin 12.7, Hematocrit 36.7L , Mean Corpuscular Volume 97, Mean Corpuscular Hemoglobin 33.8H, Mean Corpuscular Hemoglobin Concent 34.7, Red Cell Distribution Width 11.8, Platelet Count 177, Mean Platelet Volume 9.1, Neutrophils (%) (Auto) 43.4L, Lymphocytes ( %) (Auto) 45.6H, Monocytes (%) (Auto) 9.2, Eosinophils (%) (Auto) 0.9, Basophils (%) (Auto) 0.9, Sodium Level 142, Potassium Level 3.8, Chloride Level 104, Carbon Dioxide Level 26, Anion Gap 12, Blood Urea Nitrogen 5L, Creatinine 0.8, Estimat Glomerular Filtration Rate > 60, Glucose Level 87, Calcium Level 9.4 Height (Feet): 5 Height (Inches): 3.00 Weight (Pounds): 95 General Appearance: no apparent distress, alert, thin Neurologic: alert, oriented x 3, responsive, depressed affect Kerline Ray M.D. Mar 09, 2017 18:04
[2017-03-09 20:00] VITALS: BP 100/48
--- NOTE | 2017-03-09 20:00 | Consultation ---
DATE OF CONSULTATION: 03/09/2017 NEUROLOGIC CONSULTATION CONSULTING PHYSICIAN: Kole Morejon M.D. REQUESTING PHYSICIAN: Nicola Jean M.D. History Of Present Illness: This 27-year-old female is seen in neurological consultation to evaluate the presence of progressive neurodegenerative disease. Unfortunately, no medical records have been available. The patient is unable to provide with such information. Current information was obtained from current records only. The patient reportedly has a history of multiple sclerosis, which she indicates started at the age of 11. She is a resident of residential care, was brought to this hospital with evidence of failure to thrive and signs of urinary tract infection. On admission, her vital signs were stable except blood pressure was 91/49 and she was afebrile. Her imaging limited to chest x-ray revealed no acute process. Her lab work included unremarkable CBC study. Chemistry panel, anion gap of 16 and creatinine 1.0. Normal TSH. Normal lipid panel. Her toxicology panel was negative, although urinalysis with 5-10 WBCs and 1+ leukocyte esterase. The patient was started on IV fluids and antibiotics. The patient became somewhat more responsive and was able to verbalize. Past Medical History: Reportedly multiple sclerosis. She is wheelchair bound, has a chronic psychiatric disorder, dysphagia, malnutrition, and failure to thrive. Medications: Her current treatment also included a subcutaneous heparin, p.r.n. Ativan, Remeron 7.5 mg daily, and also ranitidine. Treatment prior to admission was not available for review. ALLERGIES: None reported. SOCIAL HISTORY: A resident of [facility]. FAMILY HISTORY: Unavailable. Review Of Symptoms: This is limited due to the patient's condition. She was indicating she was feeling fine, but would not elaborate. PHYSICAL EXAMINATION: General: This is a well-developed, slim, pale, somewhat malnourished-appearing female, lying in bed, fully awake. There is a sitter in the room. Vital Signs: Her vital signs now stable. She is afebrile. Blood pressure 107/62. HEENT: Head, normocephalic. There is no evidence of trauma. Eyes, ears, nose, and throat are clear. NECK: Supple. No meningeal signs. Musculoskeletal: Smallness of both upper and lower extremities. Peripheral pulses 1+ and symmetric. Neurological: Mental Status: The patient is alert, has a good eye contact. She was able to follow few simple commands, but at times, she would become irritated stating "don't touch me." Her speech is non-fluent, brief phrases, very dysarthric, at times hard to understand. Able to say that she was born in [place]. She was not sure if she has parents or siblings. She knew her age of 26 and she knew the name of this hospital. She indicated that she likes this place, but did not like the place she came from. Cranial Nerves Cranial Nerve II: Pupils are both responding to light and accommodation. Extraocular movements full range. Fundi poorly visualized. The patient was not cooperative. CRANIAL NERVE V: Normal corneal responses. CRANIAL NERVE VII: No facial asymmetry. CRANIAL NERVE VIII: Grossly normal hearing. Cranial Nerves IX through XII: Tongue is in midline. Symmetric palate elevation. The patient has slight dysphagia as established by Speech Therapy. Motor Examination: Able to lift arms against the gravity, strength 5-/5 distally in biceps, triceps, and handgrip, but decreased strength of 4-/4 in both deltoids. There was no spontaneous movement in both lower extremities. There was intermittently increased tone in the right lower extremity. Otherwise, the patient appears flaccid in both legs, extended both feet. There is some diffuse muscle wasting in both lower extremities predominantly. Deep tendon reflexes depressed, biceps, triceps, brachioradialis, knee and ankle jerks. Plantar responses, withdrawal bilaterally. SENSORY EXAM: The patient was irritated and did not comply. IMPRESSION: 1. This 27-year-old with reportedly multiple sclerosis, now presenting with cognitive loss, dysphagia, and paraplegia. Rule out cerebral palsy, rule out hydrocephalus or progressive neurodegenerative disease. 2. Failure to thrive, rule out occult malignancy. Recommendation: I discussed the patient's status with attending. In absence of any source of information on this patient, we will obtain MRI of the brain. If necessary, we will give sedation with Ativan. Further attempts obtaining previous workup and medical history will be pursued. Continue with supportive care. Thank you for allowing me to see this interesting patient in neurological consultation. Kole Morejon M.D. DR: SUSAN JOB#: [id number] CC:
--- NOTE | 2017-03-09 20:32 | Infectious Diseases Prog Note ---
Assessment/Plan Assessment/Plan ASSESSMENT: The patient is a 27-year-old female with Multiple sclerosis. Failure to thrive. Probable urinary tract infection/pyuria. PLAN: change IV Rocephin d # 2 ( pt refused ) , to Levaquin d# 2 / 3 Monitor CBC. Monitor cultures (urine) Subjective Allergies: Coded Allergies: UNABLE TO ASSESS (Unverified , 03/06/17) Subjective refusing IV Rocephin Objective Vital Signs Last 24 Hour Vital Signs Date Time Temp Pulse Resp B/P (MAP) Pulse Ox O2 Delivery O2 Flow Rate FiO2 03/09/17 20:00 97.9 78 18 100/48 96 Room Air 03/09/17 12:27 97.0 91 19 100/62 100 Room Air 03/09/17 08:50 97.0 87 18 107/62 100 Room Air 03/09/17 04:00 98.0 94 18 112/69 97 Room Air 03/08/17 23:54 96.8 90 18 103/54 98 Room Air Height (Feet): 5 Height (Inches): 3.00 Weight (Pounds): 95 Laboratory Tests Test 03/09/17 05:30 White Blood Count 6.6 K/UL (4.8-10.8) Red Blood Count 3.77 M/UL (4.20-5.40) L Hemoglobin 12.7 G/DL (12.0-16.0) Hematocrit 36.7 % (37.0-47.0) L Mean Corpuscular Volume 97 FL (80-99) Mean Corpuscular Hemoglobin 33.8 PG (27.0-31.0) H Mean Corpuscular Hemoglobin Concent 34.7 G/DL (32.0-36.0) Red Cell Distribution Width 11.8 % (11.6-14.8) Platelet Count 177 K/UL (150-450) Mean Platelet Volume 9.1 FL (6.5-10.1) Neutrophils (%) (Auto) 43.4 % (45.0-75.0) L Lymphocytes (%) (Auto) 45.6 % (20.0-45.0) H Monocytes (%) (Auto) 9.2 % (1.0-10.0) Eosinophils (%) (Auto) 0.9 % (0.0-3.0) Basophils (%) (Auto) 0.9 % (0.0-2.0) Sodium Level 142 mEQ/L (135-145) Potassium Level 3.8 mEQ/L (3.4-4.9) Chloride Level 104 mEQ/L (98-107) Carbon Dioxide Level 26 mEQ/L (20-30) Anion Gap 12 (5-15) Blood Urea Nitrogen 5 mg/dL (7-23) L Creatinine 0.8 mg/dL (0.5-0.9) Estimat Glomerular Filtration Rate > 60 mL/min (>60) Glucose Level 87 mg/dL (74-106) Calcium Level 9.4 mg/dL (8.6-10.2) Current Medications Medications (Trade) Dose Ordered Sig/Nancy Route PRN Reason Start Time Stop Time Status Last Admin Dose Admin Acetaminophen (Tylenol) 650 mg Q4H PRN ORAL MILD PAIN / T>100.5 03/06/17 21:00 04/05/17 20:59 Ceftriaxone Sodium 1 gm/ Dextrose 55 ml @ 110 mls/hr Q24H IVPB 03/07/17 18:00 03/14/17 17:59 Dextrose/Sodium Chloride 1,000 ml @ 100 mls/hr Q10H IV 03/06/17 21:00 04/05/17 20:59 03/07/17 06:52 Heparin Sodium (Porcine) (Heparin 5000 units/ml) 5,000 units EVERY 12 HOURS SUBQ 03/06/17 21:00 04/05/17 20:59 03/08/17 21:31 Levofloxacin (Levaquin) 500 mg DAILY ORAL 03/08/17 13:00 03/15/17 12:59 03/09/17 09:51 Lorazepam (Ativan 2mg/ml 1ml) 1 mg Q6H PRN IV For Anxiety 03/06/17 21:00 03/13/17 20:59 Mirtazapine (Remeron) 7.5 mg QHS ORAL 03/07/17 21:00 04/06/17 20:59 03/08/17 21:25 Ranitidine HCl (Zantac) 150 mg TWICE A DAY ORAL 03/07/17 09:00 04/06/17 08:59 03/09/17 09:51 STEVE JARRELL M.D. Mar 09, 2017 20:32
[2017-03-09] MEDS ORDERED: Sodium Chloride 500ML 500 ML IVPB ONE (23:30)
[2017-03-10] VITALS (7 sets, daily range): BP systolic 89–127; BP diastolic 40–76
[2017-03-10] MEDS: D5NS 1,000 ML IV SCH ×2 (06:12→15:00)
[2017-03-10] MEDS: Heparin 5000 units/ml inj SUBQ SCH ×2 (09:00→21:18)
[2017-03-10] MEDS: Levofloxacin 500mg tab ORAL SCH (09:00)
--- NOTE | 2017-03-10 11:04 | General Progress Note ---
Assessment/Plan Status: stable Assessment/Plan decrease agitation currently calm and cooperative. eating more. DD pt may not leave [facility]a lacks capacity cont remeron cocktail was ordered and will repeat MRI Subjective Neurologic/Psychiatric: Reports: anxiety, depressed, emotional problems Allergies: Coded Allergies: UNABLE TO ASSESS (Unverified , 03/06/17) Subjective the pt has refused MRI, will sedate and repeat the MRI. she has been uncooperative Objective Last 24 Hour Vital Signs Date Time Temp Pulse Resp B/P (MAP) Pulse Ox O2 Delivery O2 Flow Rate FiO2 03/10/17 08:00 97.7 91 17 94/67 98 Room Air 03/10/17 03:57 97.3 118 18 127/52 95 Room Air 03/10/17 01:36 92/51 03/10/17 00:00 97.3 84 18 89/40 98 Room Air 03/09/17 20:00 97.9 78 18 100/48 96 Room Air 03/09/17 12:27 97.0 91 19 100/62 100 Room Air Height (Feet): 5 Height (Inches): 3.00 Weight (Pounds): 95 General Appearance: no apparent distress, alert, thin Neurologic: alert, oriented x 3, responsive Kerline Ray M.D. Mar 10, 2017 11:04
[2017-03-10] MEDS ORDERED: LORazepam Inj 2mg/ml 1ml IM ONE (11:30)
[2017-03-10] MEDS ORDERED: Haloperidol 5mg/ml Inj IM ONE (11:30)
[2017-03-10] MEDS ORDERED: DiphenhydrAMINE 50mg/ml Inj IM ONE (11:30)
--- NOTE | 2017-03-10 11:41 | General Progress Note ---
Assessment/Plan Status: stable Assessment/Plan 1. Acute encephalopathy 2. Urinary tract infection. 3. Malnourishment. 4. [facility]-NeuroMusclar disorder: reported Multiple sclerosis. 5. Wheelchair bound. 6. Psychiatric disorder. 7. Declined Cognition- Not capable making medical decision 8. Dysphagia 9. Gastrointestinal and deep vein thrombosis prophylaxis. Plan: Neruo consult revewied Bioethic input reviewed Palliative input is reviewed SW to locate probable Next Keen and placement Subjective ROS Limited/Unobtainable: Yes Allergies: Coded Allergies: UNABLE TO ASSESS (Unverified , 03/06/17) Objective Last 24 Hour Vital Signs Date Time Temp Pulse Resp B/P (MAP) Pulse Ox O2 Delivery O2 Flow Rate FiO2 03/10/17 08:00 97.7 91 17 94/67 98 Room Air 03/10/17 03:57 97.3 118 18 127/52 95 Room Air 03/10/17 01:36 92/51 03/10/17 00:00 97.3 84 18 89/40 98 Room Air 03/09/17 20:00 97.9 78 18 100/48 96 Room Air 03/09/17 12:27 97.0 91 19 100/62 100 Room Air Height (Feet): 5 Height (Inches): 3.00 Weight (Pounds): 95 General Appearance: no apparent distress EENT: PERRL/EOMI, other - Dysartheria Neck: supple Cardiovascular: normal rate Respiratory/Chest: lungs clear Abdomen: soft Extremities: other - HyperReflexia and Contracted Extrex 4 Neurologic: disoriented, other - Declined cognition Objective comfortable. whispers in limited worded sentences. Nicola Jean MD Mar 10, 2017 11:41
[2017-03-10] MEDS ORDERED: D5NS 1000ml IV ONE (15:34)
[2017-03-10] MEDS ORDERED: Tubing IV Secondary IV ONE (15:34)
[2017-03-10] MEDS ORDERED: NS 500ML IV ONE (15:34)
--- NOTE | 2017-03-10 17:21 | Diagnostic Imaging Report ---
Indications: DYSPHAGIA Technique: Patient ingested multiple substances under the supervision of speech pathology. Video fluoroscopic recording performed. Total fluoroscopy time 24 seconds. Total dose area product 0.21760 mGycm2 Comparison: none Findings: There is early pooling of thin liquid barium. Occasional deep is observed with thin liquid barium. Equivocal trace supraglottic laryngeal penetration is seen with nectar thick liquid barium. Ingestion of honey thick liquid barium, barium pur?e, barium-soaked solid is unremarkable. Supraglottic laryngeal penetration Impression: Positive for penetration of thin and nectar thick liquid barium. No evidence of aspiration Please refer to speech pathology report for more detailed analysis.
--- NOTE | 2017-03-10 18:32 | Pulmonology Progress Note ---
Assessment/Plan Problems: (1) Multiple sclerosis (2) Failure to thrive Assessment/Plan dc planning symptomatic treatment wants to go back to alf in [place] Subjective ROS Limited/Unobtainable: No Constitutional: Reports: no symptoms Respiratory: Reports: no symptoms Allergies: Coded Allergies: UNABLE TO ASSESS (Unverified , 03/06/17) Objective Last 24 Hour Vital Signs Date Time Temp Pulse Resp B/P (MAP) Pulse Ox O2 Delivery O2 Flow Rate FiO2 03/10/17 16:00 97.7 97 19 105/61 97 Room Air 03/10/17 12:00 97.7 99 18 97/62 Room Air 03/10/17 08:00 97.7 91 17 94/67 98 Room Air 03/10/17 03:57 97.3 118 18 127/52 95 Room Air 03/10/17 01:36 92/51 03/10/17 00:00 97.3 84 18 89/40 98 Room Air 03/09/17 20:00 97.9 78 18 100/48 96 Room Air Intake and Output 03/10/17 03/11/17 19:00 07:00 Intake Total 1140 ml Balance 1140 ml Intake Oral 240 ml IV Total 900 ml General Appearance: WD/WN, no acute distress HEENT: atraumatic Respiratory/Chest: chest wall non-tender, lungs clear Cardiovascular: normal peripheral pulses Abdomen: normal bowel sounds, soft, non tender Extremities: no cyanosis, no clubbing Neurologic/Psychiatric: rn patient care II-XII grossly normal Current Medications Medications (Trade) Dose Ordered Sig/Nancy Route PRN Reason Start Time Stop Time Status Last Admin Dose Admin Acetaminophen (Tylenol) 650 mg Q4H PRN ORAL MILD PAIN / T>100.5 03/06/17 21:00 04/05/17 20:59 Dextrose/Sodium Chloride 1,000 ml @ 100 mls/hr Q10H IV 03/06/17 21:00 04/05/17 20:59 03/10/17 06:12 Heparin Sodium (Porcine) (Heparin 5000 units/ml) 5,000 units EVERY 12 HOURS SUBQ 03/06/17 21:00 04/05/17 20:59 03/09/17 21:00 Levofloxacin (Levaquin) 500 mg DAILY ORAL 03/08/17 13:00 03/15/17 12:59 03/09/17 09:51 Lorazepam (Ativan 2mg/ml 1ml) 1 mg Q6H PRN IV For Anxiety 03/06/17 21:00 03/13/17 20:59 03/10/17 08:48 Mirtazapine (Remeron) 7.5 mg QHS ORAL 03/07/17 21:00 04/06/17 20:59 03/08/17 21:25 Ranitidine HCl (Zantac) 150 mg TWICE A DAY ORAL 03/07/17 09:00 04/06/17 08:59 03/10/17 17:26 CHRISTIAN BELL Mar 10, 2017 18:31
[2017-03-11] VITALS: BP 113/71
[2017-03-11] MEDS: D5NS 1,000 ML IV SCH ×2 (01:00→11:00)
[2017-03-11 04:00] VITALS: BP 105/77
[2017-03-11 07:58] VITALS: BP 100/66
[2017-03-11] MEDS: Levofloxacin 500mg tab ORAL SCH (09:34)
[2017-03-11] MEDS: Heparin 5000 units/ml inj SUBQ SCH ×3 (09:38→21:30)
--- NOTE | 2017-03-11 10:24 | Infectious Diseases Prog Note ---
Assessment/Plan Assessment/Plan ASSESSMENT: The patient is a 27-year-old female with Multiple sclerosis. Failure to thrive. no evid of urinary tract infection/ UCx : no sig growth pyuria. PLAN: DC Levaquin d# 4 and monitor pt off of AB Rx SP IV Rocephin d # 2 ( 03/07 ) , Monitor CBC Subjective Constitutional: Denies: no symptoms, fever, chills, fatigue, anorexia, drenching sweats, other Allergies: Coded Allergies: UNABLE TO ASSESS (Unverified , 03/06/17) Subjective refusing IV Rocephin Objective Vital Signs Last 24 Hour Vital Signs Date Time Temp Pulse Resp B/P (MAP) Pulse Ox O2 Delivery O2 Flow Rate FiO2 03/11/17 07:58 97.7 88 20 100/66 97 Room Air 03/11/17 04:00 96.6 86 18 105/77 98 Room Air 03/11/17 00:00 98.1 72 18 113/71 95 Room Air 03/10/17 20:00 97.3 97 20 110/76 96 Room Air 03/10/17 16:00 97.7 97 19 105/61 97 Room Air 03/10/17 12:00 97.7 99 18 97/62 Room Air Height (Feet): 5 Height (Inches): 3.00 Weight (Pounds): 95 HEENT: anicteric Respiratory/Chest: no respiratory distress Cardiovascular: regularly irregular Abdomen: non distended Current Medications Medications (Trade) Dose Ordered Sig/Nancy Route PRN Reason Start Time Stop Time Status Last Admin Dose Admin Acetaminophen (Tylenol) 650 mg Q4H PRN ORAL MILD PAIN / T>100.5 03/06/17 21:00 04/05/17 20:59 Dextrose/Sodium Chloride 1,000 ml @ 100 mls/hr Q10H IV 03/06/17 21:00 04/05/17 20:59 03/11/17 01:00 Heparin Sodium (Porcine) (Heparin 5000 units/ml) 5,000 units EVERY 12 HOURS SUBQ 03/06/17 21:00 04/05/17 20:59 03/11/17 09:38 Levofloxacin (Levaquin) 500 mg DAILY ORAL 03/08/17 13:00 03/15/17 12:59 03/11/17 09:34 Lorazepam (Ativan 2mg/ml 1ml) 1 mg Q6H PRN IV For Anxiety 03/06/17 21:00 03/13/17 20:59 03/10/17 08:48 Mirtazapine (Remeron) 7.5 mg QHS ORAL 03/07/17 21:00 04/06/17 20:59 03/08/17 21:25 Ranitidine HCl (Zantac) 150 mg TWICE A DAY ORAL 03/07/17 09:00 04/06/17 08:59 03/11/17 09:34 STEVE JARRELL M.D. Mar 11, 2017 10:24
--- NOTE | 2017-03-11 11:22 | General Progress Note ---
Assessment/Plan Status: stable Assessment/Plan 1. Acute on chronic encephalopathy 2. Urinary tract infection. 3. Malnourishment. 4. [facility]-NeuroMusclar disorder: reported Multiple sclerosis. 5. Wheelchair bound. 6. Psychiatric disorder. 7. Declined Cognition- Not capable making medical decision 8. Dysphagia 9. Gastrointestinal and deep vein thrombosis prophylaxis. Plan: Neruo consult revewied Bioethic input reviewed Palliative input is reviewed SW to locate probable [facility] and placement Failed to obtain MRI ( in first attempt) Discharge pending to placement ( needs skilled facility ) refusing IV placement. c/w PO Subjective ROS Limited/Unobtainable: Yes Allergies: Coded Allergies: UNABLE TO ASSESS (Unverified , 03/06/17) Objective Last 24 Hour Vital Signs Date Time Temp Pulse Resp B/P (MAP) Pulse Ox O2 Delivery O2 Flow Rate FiO2 03/11/17 07:58 97.7 88 20 100/66 97 Room Air 03/11/17 04:00 96.6 86 18 105/77 98 Room Air 03/11/17 00:00 98.1 72 18 113/71 95 Room Air 03/10/17 20:00 97.3 97 20 110/76 96 Room Air 03/10/17 16:00 97.7 97 19 105/61 97 Room Air 03/10/17 12:00 97.7 99 18 97/62 Room Air Height (Feet): 5 Height (Inches): 3.00 Weight (Pounds): 95 General Appearance: no apparent distress EENT: other - Dysartheria Neck: stiff neck Cardiovascular: normal rate Respiratory/Chest: lungs clear Abdomen: soft Extremities: non-tender, other - contracted. Atrophied musculature Neurologic: disoriented Objective comfortable. whispers in limited worded sentences. Nicola Jean MD Mar 11, 2017 11:22
[2017-03-11 11:46] VITALS: BP 102/52
--- NOTE | 2017-03-11 15:25 | Pulmonology Progress Note ---
Assessment/Plan Problems: (1) Multiple sclerosis (2) Failure to thrive Assessment/Plan dc planning symptomatic treatment [facility] [place] Subjective ROS Limited/Unobtainable: Yes Constitutional: Reports: fatigue Neurologic: Reports: weakness Skin: Reports: rash, ulcer Musculoskeletal: Reports: pain Allergies: Coded Allergies: CHOCOLATE FLAVOR (Verified Allergy, Unknown, 03/12/17) Objective Last 24 Hour Vital Signs Date Time Temp Pulse Resp B/P (MAP) Pulse Ox O2 Delivery O2 Flow Rate FiO2 03/11/17 11:46 97.3 89 20 102/52 98 Room Air 03/11/17 07:58 97.7 88 20 100/66 97 Room Air 03/11/17 04:00 96.6 86 18 105/77 98 Room Air 03/11/17 00:00 98.1 72 18 113/71 95 Room Air 03/10/17 20:00 97.3 97 20 110/76 96 Room Air 03/10/17 16:00 97.7 97 19 105/61 97 Room Air Intake and Output 03/11/17 03/12/17 19:00 07:00 Intake Total 240 ml Balance 240 ml Intake Oral 240 ml # Voids 4 General Appearance: no acute distress HEENT: normocephalic, atraumatic, PERRL Respiratory/Chest: chest wall non-tender, decreased breath sounds, accessory muscle use Breasts: no masses Cardiovascular: normal peripheral pulses, normal rate, regular rhythm, no JVD Abdomen: normal bowel sounds, soft, non tender, no organomegaly, non distended Genitourinary: other Extremities: no cyanosis Skin: rash, lesions, ulcers Neurologic/Psychiatric: responsive, abnormal CN, motor weakness, sensory deficit, disoriented Musculoskeletal: atrophy Current Medications Medications (Trade) Dose Ordered Sig/Nancy Route PRN Reason Start Time Stop Time Status Last Admin Dose Admin Acetaminophen (Tylenol) 650 mg Q4H PRN ORAL MILD PAIN / T>100.5 03/06/17 21:00 04/05/17 20:59 Dextrose/Sodium Chloride 1,000 ml @ 100 mls/hr Q10H IV 03/06/17 21:00 04/05/17 20:59 03/11/17 01:00 Heparin Sodium (Porcine) (Heparin 5000 units/ml) 5,000 units EVERY 12 HOURS SUBQ 03/06/17 21:00 04/05/17 20:59 03/11/17 09:38 Lorazepam (Ativan 2mg/ml 1ml) 1 mg Q6H PRN IV For Anxiety 03/06/17 21:00 03/13/17 20:59 03/10/17 08:48 Mirtazapine (Remeron) 7.5 mg QHS ORAL 03/07/17 21:00 04/06/17 20:59 03/08/17 21:25 Ranitidine HCl (Zantac) 150 mg TWICE A DAY ORAL 03/07/17 09:00 04/06/17 08:59 03/11/17 09:34 CHRISTIAN BELL Mar 11, 2017 15:25
[2017-03-11 15:46] VITALS: BP 107/74
[2017-03-11 20:21] VITALS: BP 104/54
[2017-03-12 00:22] VITALS: BP 110/60
[2017-03-12 04:00] VITALS: BP 112/88
[2017-03-12 05:06] VITALS: BP 112/68
--- NOTE | 2017-03-12 11:48 | Infectious Diseases Prog Note ---
Assessment/Plan Assessment/Plan A; Pyuria Multiple sclerosis FTT Dysphagia P; observe off antibiotic Subjective ROS Limited/Unobtainable: Yes Allergies: Coded Allergies: UNABLE TO ASSESS (Unverified , 03/06/17) Objective Vital Signs Last 24 Hour Vital Signs Date Time Temp Pulse Resp B/P (MAP) Pulse Ox O2 Delivery O2 Flow Rate FiO2 03/12/17 04:00 97.5 80 18 112/88 98 Room Air 03/12/17 00:22 97.5 98 19 110/60 97 Room Air 03/11/17 20:21 97.9 96 19 104/54 95 Room Air 03/11/17 15:46 98.0 94 20 107/74 98 Room Air 03/11/17 11:46 97.3 89 20 102/52 98 Room Air Height (Feet): 5 Height (Inches): 3.00 Weight (Pounds): 95 General Appearance: no acute distress HEENT: mucous membranes moist Respiratory/Chest: lungs clear Cardiovascular: normal rate Abdomen: soft, non tender Extremities: no edema Neurologic/Psychiatric: disoriented Current Medications Medications (Trade) Dose Ordered Sig/Nancy Route PRN Reason Start Time Stop Time Status Last Admin Dose Admin Acetaminophen (Tylenol) 650 mg Q4H PRN ORAL MILD PAIN / T>100.5 03/06/17 21:00 04/05/17 20:59 Heparin Sodium (Porcine) (Heparin 5000 units/ml) 5,000 units EVERY 12 HOURS SUBQ 03/06/17 21:00 04/05/17 20:59 03/11/17 21:27 Lorazepam (Ativan 2mg/ml 1ml) 1 mg Q6H PRN IV For Anxiety 03/06/17 21:00 03/13/17 20:59 03/10/17 08:48 Mirtazapine (Remeron) 7.5 mg QHS ORAL 03/07/17 21:00 04/06/17 20:59 03/11/17 21:26 Ranitidine HCl (Zantac) 150 mg TWICE A DAY ORAL 03/07/17 09:00 04/06/17 08:59 03/11/17 09:34 KEMI MALDONADO Mar 12, 2017 11:47
[2017-03-12] MEDS ORDERED: DiphenhydrAMINE 50mg/ml Inj IM ONE (12:15)
[2017-03-12] MEDS ORDERED: LORazepam Inj 2mg/ml 1ml IM ONE (12:15)
[2017-03-12] MEDS ORDERED: Haloperidol 5mg/ml Inj IM ONE (12:15)
[2017-03-12 16:00] VITALS: BP 113/44
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
--- NOTE | 2017-03-12 16:22 | Pulmonology Progress Note ---
Assessment/Plan Problems: (1) Multiple sclerosis (2) Failure to thrive Assessment/Plan Mentation and level of conciousness appears restored to baseline D/C planning per patient request Symptomatic treatment Patient wants to go back to nursing home in [place] Subjective ROS Limited/Unobtainable: Yes Constitutional: Reports: fatigue, anorexia Neurologic: Reports: numbness, weakness Allergies: Coded Allergies: CHOCOLATE FLAVOR (Verified Allergy, Unknown, 03/12/17) Objective Last 24 Hour Vital Signs Date Time Temp Pulse Resp B/P (MAP) Pulse Ox O2 Delivery O2 Flow Rate FiO2 03/12/17 04:00 97.5 80 18 112/88 98 Room Air 03/12/17 00:22 97.5 98 19 110/60 97 Room Air 03/11/17 20:21 97.9 96 19 104/54 95 Room Air Intake and Output 03/12/17 03/13/17 19:00 07:00 Intake Total 240 ml Balance 240 ml Intake Oral 240 ml # Voids 1 General Appearance: no acute distress HEENT: normocephalic, atraumatic, mucous membranes moist Respiratory/Chest: chest wall non-tender Cardiovascular: normal peripheral pulses, normal rate, regular rhythm, no JVD Abdomen: normal bowel sounds, soft, non tender, no organomegaly, non distended Genitourinary: normal external genitalia Extremities: no cyanosis Skin: no rash Neurologic/Psychiatric: abnormal CN, motor weakness, sensory deficit Current Medications Medications (Trade) Dose Ordered Sig/Nancy Route PRN Reason Start Time Stop Time Status Last Admin Dose Admin Acetaminophen (Tylenol) 650 mg Q4H PRN ORAL MILD PAIN / T>100.5 03/06/17 21:00 04/05/17 20:59 Heparin Sodium (Porcine) (Heparin 5000 units/ml) 5,000 units EVERY 12 HOURS SUBQ 03/06/17 21:00 04/05/17 20:59 03/11/17 21:27 Lorazepam (Ativan 2mg/ml 1ml) 1 mg Q6H PRN IV For Anxiety 03/06/17 21:00 03/13/17 20:59 03/10/17 08:48 Mirtazapine (Remeron) 7.5 mg QHS ORAL 03/07/17 21:00 04/06/17 20:59 03/11/17 21:26 Ranitidine HCl (Zantac) 150 mg TWICE A DAY ORAL 03/07/17 09:00 04/06/17 08:59 03/11/17 09:34 CHRISTIAN BELL Mar 12, 2017 16:22
[2017-03-12 20:00] VITALS: BP 98/57
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
[2017-03-12] MEDS: Heparin 5000 units/ml inj SUBQ SCH (21:07)
[2017-03-13] VITALS: BP 96/56
[2017-03-13 04:00] VITALS: BP 98/60
[2017-03-13 08:00] VITALS: BP 97/54
[2017-03-13] MEDS: Heparin 5000 units/ml inj SUBQ SCH ×2 (08:06→21:01)
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
[2017-03-13 12:00] VITALS: BP 100/60
--- NOTE | 2017-03-13 14:29 | Infectious Diseases Prog Note ---
Assessment/Plan Assessment/Plan A; Pyuria with no evid of urinary tract infection/ UCx : no sig growth Multiple sclerosis FTT Dysphagia P; observe off antibiotic -s/p 4d Levaquin 03/12 -SP IV Rocephin d # 2 ( 03/07 ) Monitor CBC/BMP, temperatures Discussed with RN Subjective Allergies: Coded Allergies: CHOCOLATE FLAVOR (Verified Allergy, Unknown, 03/12/17) Subjective afebrile VSS no leukocytosis Objective Vital Signs Last 24 Hour Vital Signs Date Time Temp Pulse Resp B/P (MAP) Pulse Ox O2 Delivery O2 Flow Rate FiO2 03/13/17 08:00 97.5 88 17 97/54 98 Room Air 03/13/17 04:00 97.8 84 18 98/60 94 Room Air 03/13/17 00:00 97.9 90 18 96/56 95 Room Air 03/12/17 20:00 98.1 93 18 98/57 94 Room Air 03/12/17 16:00 97.0 83 20 113/44 97 Room Air Height (Feet): 5 Height (Inches): 3.00 Weight (Pounds): 95 Objective General Appearance: no acute distress HEENT: mucous membranes moist Respiratory/Chest: lungs clear Cardiovascular: normal rate Abdomen: soft, non tender Extremities: no edema Neurologic/Psychiatric: disoriented reviewed reviewed Current Medications Medications (Trade) Dose Ordered Sig/Nancy Route PRN Reason Start Time Stop Time Status Last Admin Dose Admin Acetaminophen (Tylenol) 650 mg Q4H PRN ORAL MILD PAIN / T>100.5 03/06/17 21:00 04/05/17 20:59 Heparin Sodium (Porcine) (Heparin 5000 units/ml) 5,000 units EVERY 12 HOURS SUBQ 03/06/17 21:00 04/05/17 20:59 03/13/17 08:06 Lorazepam (Ativan 2mg/ml 1ml) 1 mg Q6H PRN IV For Anxiety 03/06/17 21:00 03/13/17 20:59 03/10/17 08:48 Mirtazapine (Remeron) 7.5 mg QHS ORAL 03/07/17 21:00 04/06/17 20:59 03/11/17 21:26 Ranitidine HCl (Zantac) 150 mg TWICE A DAY ORAL 03/07/17 09:00 04/06/17 08:59 03/13/17 08:04 Dinorah Paul M.D. Mar 13, 2017 14:28
--- NOTE | 2017-03-13 19:27 | Pulmonology Progress Note ---
Assessment/Plan Problems: (1) Multiple sclerosis (2) Failure to thrive Assessment/Plan dc planning symptomatic treatment wants to go back to residential in [place] Subjective ROS Limited/Unobtainable: Yes Constitutional: Reports: fatigue, anorexia Neurologic: Reports: numbness, weakness Musculoskeletal: Reports: pain, stiffness Allergies: Coded Allergies: CHOCOLATE FLAVOR (Verified Allergy, Unknown, 03/12/17) Objective Last 24 Hour Vital Signs Date Time Temp Pulse Resp B/P (MAP) Pulse Ox O2 Delivery O2 Flow Rate FiO2 03/13/17 12:00 97.3 86 18 100/60 Room Air 03/13/17 08:00 97.5 88 17 97/54 98 Room Air 03/13/17 04:00 97.8 84 18 98/60 94 Room Air 03/13/17 00:00 97.9 90 18 96/56 95 Room Air 03/12/17 20:00 98.1 93 18 98/57 94 Room Air Intake and Output 03/13/17 03/14/17 19:00 07:00 # Voids 6 Objective General Appearance: no acute distress HEENT: normocephalic, atraumatic, mucous membranes moist Respiratory/Chest: chest wall non-tender Cardiovascular: normal peripheral pulses, normal rate, regular rhythm, no JVD Abdomen: normal bowel sounds, soft, non tender, no organomegaly, non distended Genitourinary: normal external genitalia Extremities: no cyanosis Skin: no rash Neurologic/Psychiatric: abnormal CN, motor weakness, sensory deficit Current Medications Medications (Trade) Dose Ordered Sig/Nancy Route PRN Reason Start Time Stop Time Status Last Admin Dose Admin Acetaminophen (Tylenol) 650 mg Q4H PRN ORAL MILD PAIN / T>100.5 03/06/17 21:00 04/05/17 20:59 Heparin Sodium (Porcine) (Heparin 5000 units/ml) 5,000 units EVERY 12 HOURS SUBQ 03/06/17 21:00 04/05/17 20:59 03/13/17 08:06 Lorazepam (Ativan 2mg/ml 1ml) 1 mg Q6H PRN IV For Anxiety 03/06/17 21:00 03/13/17 20:59 03/10/17 08:48 Mirtazapine (Remeron) 7.5 mg QHS ORAL 03/07/17 21:00 04/06/17 20:59 03/11/17 21:26 Ranitidine HCl (Zantac) 150 mg TWICE A DAY ORAL 03/07/17 09:00 04/06/17 08:59 03/13/17 08:04 CHRISTIAN BELL Mar 13, 2017 19:27
[2017-03-13 20:00] VITALS: BP 102/58
--- NOTE | 2017-03-13 22:16 | General Progress Note ---
Assessment/Plan Status: stable Assessment/Plan DD ms? cont Remeron -ext genitalia pic - test -refused the blood draw Subjective Neurologic/Psychiatric: Reports: anxiety, depressed, emotional problems Allergies: Coded Allergies: CHOCOLATE FLAVOR (Verified Allergy, Unknown, 03/12/17) Subjective the pt is the same Objective Last 24 Hour Vital Signs Date Time Temp Pulse Resp B/P (MAP) Pulse Ox O2 Delivery O2 Flow Rate FiO2 03/13/17 20:00 98.1 99 20 102/58 95 Room Air 03/13/17 12:00 97.3 86 18 100/60 Room Air 03/13/17 08:00 97.5 88 17 97/54 98 Room Air 03/13/17 04:00 97.8 84 18 98/60 94 Room Air 03/13/17 00:00 97.9 90 18 96/56 95 Room Air Intake and Output 03/13/17 03/14/17 19:00 07:00 # Voids 6 Height (Feet): 5 Height (Inches): 3.00 Weight (Pounds): 95 General Appearance: no apparent distress, alert, thin Neurologic: alert, responsive, depressed affect Kerline Ray M.D. Mar 13, 2017 22:16
[2017-03-14] MEDS: Heparin 5000 units/ml inj SUBQ SCH ×2 (08:46→20:53)
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
[2017-03-14 11:38] VITALS: BP 101/57
[2017-03-14 15:36] VITALS: BP 109/62
[2017-03-14] MEDS ORDERED: Haloperidol Decanoate 50mg Inj IM ONE (23:15)
[2017-03-14] MEDS ORDERED: LORazepam Inj 2mg/ml 1ml IM PRN (23:15)
[2017-03-14] MEDS ORDERED: DiphenhydrAMINE 50mg/ml Inj IM ONE (23:15)
[2017-03-14] MEDS ORDERED: LORazepam Inj 2mg/ml 1ml IM ONE (23:15)
[2017-03-15] MEDS ORDERED: Haloperidol 5mg/ml Inj IM ONE (00:15)
[2017-03-15 08:00] VITALS: BP 94/56
[2017-03-15] MEDS: Heparin 5000 units/ml inj SUBQ SCH ×2 (09:00→20:51)
[2017-03-15 12:00] VITALS: BP 92/47
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
[2017-03-15 16:00] VITALS: BP 95/41
--- NOTE | 2017-03-15 18:02 | Infectious Diseases Prog Note ---
Assessment/Plan Assessment/Plan A; Pyuria with no evid of urinary tract infection/ UCx : no sig growth Multiple sclerosis FTT Dysphagia P; -Continue to monitor off antibiotic -s/p 4d Levaquin 03/12 -SP IV Rocephin d # 2 ( 03/07 ) Monitor CBC/BMP, temperatures Discussed with RN Subjective Allergies: Coded Allergies: CHOCOLATE FLAVOR (Verified Allergy, Unknown, 03/12/17) Subjective afebrile off abx VSS no labs since 03/09 Objective Vital Signs Last 24 Hour Vital Signs Date Time Temp Pulse Resp B/P (MAP) Pulse Ox O2 Delivery O2 Flow Rate FiO2 03/15/17 16:00 97.2 93 16 95/41 96 Room Air 03/15/17 12:00 96.4 90 19 92/47 97 Room Air 03/15/17 08:00 98.0 93 19 94/56 96 Room Air Height (Feet): 5 Height (Inches): 3.00 Weight (Pounds): 95 Objective General Appearance: no acute distress HEENT: mucous membranes moist Respiratory/Chest: lungs clear Cardiovascular: normal rate Abdomen: soft, non tender Extremities: no edema Neurologic/Psychiatric: disoriented Current Medications Medications (Trade) Dose Ordered Sig/Nancy Route PRN Reason Start Time Stop Time Status Last Admin Dose Admin Acetaminophen (Tylenol) 650 mg Q4H PRN ORAL MILD PAIN / T>100.5 03/06/17 21:00 04/05/17 20:59 Heparin Sodium (Porcine) (Heparin 5000 units/ml) 5,000 units EVERY 12 HOURS SUBQ 03/06/17 21:00 04/05/17 20:59 03/14/17 08:46 Lorazepam (Ativan 2mg/ml 1ml) 1 mg Q4H PRN IM For Anxiety 03/14/17 23:15 03/21/17 23:14 Mirtazapine (Remeron) 7.5 mg QHS ORAL 03/07/17 21:00 04/06/17 20:59 03/13/17 20:58 Ranitidine HCl (Zantac) 150 mg TWICE A DAY ORAL 03/07/17 09:00 04/06/17 08:59 03/13/17 08:04 Dinorah Paul M.D. Mar 15, 2017 18:02
[2017-03-15 19:55] VITALS: BP 95/64
--- NOTE | 2017-03-15 19:57 | General Progress Note ---
Assessment/Plan Status: stable Assessment/Plan DD cont Remeron -ext genitalia pic - test -refused the blood draw Subjective Neurologic/Psychiatric: Reports: anxiety, depressed Allergies: Coded Allergies: CHOCOLATE FLAVOR (Verified Allergy, Unknown, 03/12/17) Subjective the pt is the same Objective Last 24 Hour Vital Signs Date Time Temp Pulse Resp B/P (MAP) Pulse Ox O2 Delivery O2 Flow Rate FiO2 03/15/17 16:00 97.2 93 16 95/41 96 Room Air 03/15/17 12:00 96.4 90 19 92/47 97 Room Air 03/15/17 08:00 98.0 93 19 94/56 96 Room Air Intake and Output 03/15/17 03/16/17 19:00 07:00 Intake Total 550 ml Balance 550 ml Intake Oral 550 ml # Voids 3 Height (Feet): 5 Height (Inches): 3.00 Weight (Pounds): 95 General Appearance: no apparent distress, alert, cachetic Neurologic: alert, oriented x 3, responsive, depressed affect Kerline Ray M.D. Mar 15, 2017 19:57
[2017-03-16] VITALS: BP 102/61
[2017-03-16 03:51] VITALS: BP 97/56
[2017-03-16 08:00] VITALS: BP 94/54
[2017-03-16] MEDS: Heparin 5000 units/ml inj SUBQ SCH ×2 (09:45→20:33)
[2017-03-16 12:00] VITALS: BP 98/59
[2017-03-16 16:00] VITALS: BP 111/76
[2017-03-16 19:31] VITALS: BP 98/86
[2017-03-17] VITALS: BP 109/78
[2017-03-17 08:07] VITALS: BP 100/60
[2017-03-17] MEDS: Heparin 5000 units/ml inj SUBQ SCH ×2 (09:00→21:00)
[2017-03-17 12:05] VITALS: BP 103/58
--- NOTE | 2017-03-17 12:32 | General Progress Note ---
Assessment/Plan Assessment/Plan DD -dc remeron -ext genitalia pic -start depakote -start zyprexa Subjective Date patient seen: Mar 17, 2017 Allergies: Coded Allergies: CHOCOLATE FLAVOR (Verified Allergy, Unknown, 03/12/17) Subjective the pt is the same cont to be agitated Objective Last 24 Hour Vital Signs Date Time Temp Pulse Resp B/P (MAP) Pulse Ox O2 Delivery O2 Flow Rate FiO2 03/17/17 12:05 98.0 87 20 103/58 95 Room Air 03/17/17 08:07 97.7 94 20 100/60 95 Room Air 03/17/17 00:00 97.9 102 20 109/78 98 Room Air 03/16/17 19:31 97.8 104 20 98/86 100 Room Air 03/16/17 16:00 97.7 108 17 111/76 100 Room Air Height (Feet): 5 Height (Inches): 3.00 Weight (Pounds): 95 General Appearance: no apparent distress, alert, thin Neurologic: alert, oriented x 3, responsive, depressed affect Kerline Ray M.D. Mar 17, 2017 12:32
[2017-03-17] MEDS ORDERED: D5NS 1000ml IV ONE (15:05)
[2017-03-17 16:04] VITALS: BP 120/56
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
[2017-03-17 20:00] VITALS: BP 92/66
--- NOTE | 2017-03-17 22:45 | Progress Note ---
DATE: 03/17/2017 Subjective: The patient is presenting with anxiety and agitation. She has been presenting with mood lability, throwing her tray at the staff. The patient has not been sleeping, is agitated. Mental Status Examination: The patient is alert and oriented times self, place, and situation she is in. Mood is agitated. Affect is constricted, congruent with mood. Thought process is concrete. Thought content, no suicidal or homicidal ideations. ASSESSMENT: Developmental delay. PLAN: 1. We would change the medication to valproic acid 750 mg at bedtime and olanzapine 10 mg at night. 2. We will continue follow and readjust the medication. Kerilne Ray M.D. DR: TOMMIE JOB#: [id number] CC:
[2017-03-18 00:09] VITALS: BP 104/58
[2017-03-18 04:00] VITALS: BP 91/55
[2017-03-18 08:00] VITALS: BP 99/73
--- NOTE | 2017-03-18 08:48 | Infectious Diseases Prog Note ---
Assessment/Plan Assessment/Plan A; Pyuria with no evid of urinary tract infection/ UCx : no sig growth Multiple sclerosis FTT Dysphagia P; -Continue to monitor off antibiotic -s/p 4d Levaquin 03/12 -SP IV Rocephin d # 2 ( 03/07 ) Monitor CBC/BMP, temperatures Discussed with RN Subjective Allergies: Coded Allergies: CHOCOLATE FLAVOR (Verified Allergy, Unknown, 03/12/17) Subjective afebrile off abx VSS no labs since 03/09 Objective Vital Signs Last 24 Hour Vital Signs Date Time Temp Pulse Resp B/P (MAP) Pulse Ox O2 Delivery O2 Flow Rate FiO2 03/18/17 08:00 97.7 101 22 99/73 98 Room Air 03/18/17 04:00 97.7 90 18 91/55 94 Room Air 03/18/17 00:09 96.8 90 18 104/58 94 Room Air 03/17/17 20:00 97.3 92 18 92/66 98 Room Air 03/17/17 16:04 97.6 94 20 120/56 95 Room Air 03/17/17 12:05 98.0 87 20 103/58 95 Room Air Height (Feet): 5 Height (Inches): 3.00 Weight (Pounds): 95 Objective General Appearance: no acute distress HEENT: mucous membranes moist Respiratory/Chest: lungs clear Cardiovascular: normal rate Abdomen: soft, non tender Extremities: no edema Neurologic/Psychiatric: disoriented reviewed reviewed Current Medications Medications (Trade) Dose Ordered Sig/Nancy Route PRN Reason Start Time Stop Time Status Last Admin Dose Admin Acetaminophen (Tylenol) 650 mg Q4H PRN ORAL MILD PAIN / T>100.5 03/06/17 21:00 04/05/17 20:59 03/18/17 02:05 Heparin Sodium (Porcine) (Heparin 5000 units/ml) 5,000 units EVERY 12 HOURS SUBQ 03/06/17 21:00 04/05/17 20:59 03/16/17 20:33 Lorazepam (Ativan 2mg/ml 1ml) 1 mg Q4H PRN IM For Anxiety 03/14/17 23:15 03/21/17 23:14 03/18/17 02:06 Olanzapine (ZyPREXA) 10 mg BEDTIME ORAL 03/17/17 21:00 04/16/17 20:59 Ranitidine HCl (Zantac) 150 mg TWICE A DAY ORAL 03/07/17 09:00 04/06/17 08:59 03/17/17 17:46 Valproic Acid (Depakene) 750 mg BEDTIME ORAL 03/17/17 21:00 04/16/17 20:59 Dinorah Paul M.D. Mar 18, 2017 08:48
[2017-03-18] MEDS: Heparin 5000 units/ml inj SUBQ SCH ×2 (09:24→20:32)
[2017-03-18 16:06] VITALS: BP 94/63
[2017-03-18 20:00] VITALS: BP_SYST 100; BP_SYST 97; BP_DIAS 55; BP_DIAS 64
--- NOTE | 2017-03-18 23:25 | Pulmonology Progress Note ---
Assessment/Plan Problems: (1) Multiple sclerosis (2) Failure to thrive Assessment/Plan dc planning symptomatic treatment wants to go back to [facility] [place] Subjective ROS Limited/Unobtainable: No Constitutional: Reports: fatigue Neurologic: Reports: weakness Musculoskeletal: Reports: pain, stiffness Allergies: Coded Allergies: CHOCOLATE FLAVOR (Verified Allergy, Unknown, 03/12/17) Objective Last 24 Hour Vital Signs Date Time Temp Pulse Resp B/P (MAP) Pulse Ox O2 Delivery O2 Flow Rate FiO2 03/18/17 20:00 97.6 98 20 97/55 98 Room Air 03/18/17 16:06 97.0 21 94/63 94 Room Air 03/18/17 08:00 97.7 101 22 99/73 98 Room Air 03/18/17 04:00 97.7 90 18 91/55 94 Room Air 03/18/17 00:09 96.8 90 18 104/58 94 Room Air Intake and Output 03/18/17 03/19/17 19:00 07:00 Intake Total 480 ml Balance 480 ml Intake Oral 480 ml # Voids 3 # Bowel Movements 1 General Appearance: no acute distress HEENT: normocephalic, atraumatic, PERRL Respiratory/Chest: chest wall non-tender, decreased breath sounds, accessory muscle use Breasts: no masses Cardiovascular: normal peripheral pulses, normal rate, regular rhythm, no JVD Abdomen: normal bowel sounds, soft, non tender, no organomegaly, non distended Genitourinary: normal external genitalia Extremities: no cyanosis Skin: no rash, no lesions Neurologic/Psychiatric: responsive, abnormal CN, motor weakness, sensory deficit Current Medications Medications (Trade) Dose Ordered Sig/Nancy Route PRN Reason Start Time Stop Time Status Last Admin Dose Admin Acetaminophen (Tylenol) 650 mg Q4H PRN ORAL MILD PAIN / T>100.5 03/06/17 21:00 04/05/17 20:59 03/18/17 16:35 Heparin Sodium (Porcine) (Heparin 5000 units/ml) 5,000 units EVERY 12 HOURS SUBQ 03/06/17 21:00 04/05/17 20:59 03/18/17 09:24 Lorazepam (Ativan 2mg/ml 1ml) 1 mg Q4H PRN IM For Anxiety 03/14/17 23:15 03/21/17 23:14 03/18/17 02:06 Olanzapine (ZyPREXA) 10 mg BEDTIME ORAL 03/17/17 21:00 04/16/17 20:59 Ranitidine HCl (Zantac) 150 mg TWICE A DAY ORAL 03/07/17 09:00 04/06/17 08:59 03/18/17 18:37 Valproic Acid (Depakene) 750 mg BEDTIME ORAL 03/17/17 21:00 04/16/17 20:59 CHRISTIAN BELL Mar 18, 2017 23:25
[2017-03-19 08:15] VITALS: BP 96/62
[2017-03-19] MEDS: Heparin 5000 units/ml inj SUBQ SCH ×2 (08:24→21:00)
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
--- NOTE | 2017-03-19 12:11 | Infectious Diseases Prog Note ---
Assessment/Plan Assessment/Plan A; Pyuria Multiple sclerosis FTT Dysphagia P; observe off antibiotic Subjective ROS Limited/Unobtainable: Yes Allergies: Coded Allergies: CHOCOLATE FLAVOR (Verified Allergy, Unknown, 03/12/17) Objective Vital Signs Last 24 Hour Vital Signs Date Time Temp Pulse Resp B/P (MAP) Pulse Ox O2 Delivery O2 Flow Rate FiO2 03/19/17 08:15 97.8 96 20 96/62 94 Room Air 03/18/17 20:00 97.6 98 20 97/55 98 Room Air 03/18/17 16:06 97.0 21 94/63 94 Room Air Height (Feet): 5 Height (Inches): 3.00 Weight (Pounds): 95 General Appearance: no acute distress HEENT: mucous membranes moist Respiratory/Chest: lungs clear Cardiovascular: normal rate Abdomen: soft, non tender Extremities: no edema Neurologic/Psychiatric: alert, responsive Current Medications Medications (Trade) Dose Ordered Sig/Nancy Route PRN Reason Start Time Stop Time Status Last Admin Dose Admin Acetaminophen (Tylenol) 650 mg Q4H PRN ORAL MILD PAIN / T>100.5 03/06/17 21:00 04/05/17 20:59 03/18/17 16:35 Heparin Sodium (Porcine) (Heparin 5000 units/ml) 5,000 units EVERY 12 HOURS SUBQ 03/06/17 21:00 04/05/17 20:59 03/19/17 08:24 Lorazepam (Ativan 2mg/ml 1ml) 1 mg Q4H PRN IM For Anxiety 03/14/17 23:15 03/21/17 23:14 03/18/17 02:06 Olanzapine (ZyPREXA) 10 mg BEDTIME ORAL 03/17/17 21:00 04/16/17 20:59 Ranitidine HCl (Zantac) 150 mg TWICE A DAY ORAL 03/07/17 09:00 04/06/17 08:59 03/18/17 18:37 Valproic Acid (Depakene) 750 mg BEDTIME ORAL 03/17/17 21:00 04/16/17 20:59 KEMI MALDONADO Mar 19, 2017 12:11
[2017-03-19 12:31] VITALS: BP 98/64
[2017-03-19 20:00] VITALS: BP 101/60
--- NOTE | 2017-03-19 22:56 | Pulmonology Progress Note ---
Assessment/Plan Problems: (1) Multiple sclerosis (2) Failure to thrive Assessment/Plan dc planning symptomatic treatment wants to go back to [facility] [place] Subjective ROS Limited/Unobtainable: No Constitutional: Reports: fatigue Neurologic: Reports: weakness Musculoskeletal: Reports: pain, stiffness Allergies: Coded Allergies: CHOCOLATE FLAVOR (Verified Allergy, Unknown, 03/12/17) Objective Last 24 Hour Vital Signs Date Time Temp Pulse Resp B/P (MAP) Pulse Ox O2 Delivery O2 Flow Rate FiO2 03/19/17 20:00 97.3 90 18 101/60 95 Room Air 03/19/17 12:31 97.6 94 20 98/64 98 Room Air 03/19/17 08:15 97.8 96 20 96/62 94 Room Air Intake and Output 03/19/17 03/20/17 19:00 07:00 Intake Total 240 ml Output Total 400 ml Balance -160 ml Intake Oral 240 ml Output Urine Total 400 ml # Voids 1 Objective General Appearance: no acute distress HEENT: normocephalic, atraumatic, PERRL Respiratory/Chest: chest wall non-tender, decreased breath sounds, accessory muscle use Breasts: no masses Cardiovascular: normal peripheral pulses, normal rate, regular rhythm, no JVD Abdomen: normal bowel sounds, soft, non tender, no organomegaly, non distended Genitourinary: normal external genitalia Extremities: no cyanosis Skin: no rash, no lesions Neurologic/Psychiatric: responsive, abnormal CN, motor weakness, sensory deficit Current Medications Medications (Trade) Dose Ordered Sig/Nancy Route PRN Reason Start Time Stop Time Status Last Admin Dose Admin Acetaminophen (Tylenol) 650 mg Q4H PRN ORAL MILD PAIN / T>100.5 03/06/17 21:00 04/05/17 20:59 03/18/17 16:35 Heparin Sodium (Porcine) (Heparin 5000 units/ml) 5,000 units EVERY 12 HOURS SUBQ 03/06/17 21:00 04/05/17 20:59 03/19/17 08:24 Lorazepam (Ativan 2mg/ml 1ml) 1 mg Q4H PRN IM For Anxiety 03/14/17 23:15 03/21/17 23:14 03/18/17 02:06 Olanzapine (ZyPREXA) 10 mg BEDTIME ORAL 03/17/17 21:00 04/16/17 20:59 Ranitidine HCl (Zantac) 150 mg TWICE A DAY ORAL 03/07/17 09:00 04/06/17 08:59 03/18/17 18:37 Valproic Acid (Depakene) 750 mg BEDTIME ORAL 03/17/17 21:00 04/16/17 20:59 CHRISTIAN BELL Mar 19, 2017 22:56
[2017-03-20] VITALS: BP 115/64
[2017-03-20] MEDS: Heparin 5000 units/ml inj SUBQ SCH ×2 (08:50→20:54)
[2017-03-20 09:00] VITALS: BP 104/55
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
[2017-03-20 12:00] VITALS: BP 100/59
--- NOTE | 2017-03-20 14:21 | General Progress Note ---
Assessment/Plan Status: stable, progressing Assessment/Plan DD - depakote -zyprexa Subjective Neurologic/Psychiatric: Reports: anxiety, depressed, emotional problems Allergies: Coded Allergies: CHOCOLATE FLAVOR (Verified Allergy, Unknown, 03/12/17) Subjective less agitated today and calmer Objective Last 24 Hour Vital Signs Date Time Temp Pulse Resp B/P (MAP) Pulse Ox O2 Delivery O2 Flow Rate FiO2 03/20/17 12:00 97.7 81 17 100/59 97 Room Air 03/20/17 09:00 97.7 82 18 104/55 96 Room Air 03/20/17 00:00 97.7 89 18 115/64 96 Room Air 03/19/17 20:00 97.3 90 18 101/60 95 Room Air Height (Feet): 5 Height (Inches): 3.00 Weight (Pounds): 95 General Appearance: no apparent distress, alert, thin Neurologic: alert, oriented x 3, responsive, depressed affect Kerline Ray M.D. Mar 20, 2017 14:21
[2017-03-20 16:00] VITALS: BP 94/49
[2017-03-20 20:00] VITALS: BP 99/61
--- NOTE | 2017-03-20 22:47 | Pulmonology Progress Note ---
Assessment/Plan Problems: (1) Multiple sclerosis (2) Failure to thrive Assessment/Plan dc planning symptomatic treatment wants to go back to [facility] [place] Subjective ROS Limited/Unobtainable: No Constitutional: Reports: fatigue Neurologic: Reports: weakness Musculoskeletal: Reports: pain, stiffness Allergies: Coded Allergies: CHOCOLATE FLAVOR (Verified Allergy, Unknown, 03/12/17) Objective Last 24 Hour Vital Signs Date Time Temp Pulse Resp B/P (MAP) Pulse Ox O2 Delivery O2 Flow Rate FiO2 03/20/17 20:00 97.3 83 18 99/61 98 Room Air 03/20/17 16:00 97.9 86 17 94/49 97 Room Air 03/20/17 12:00 97.7 81 17 100/59 97 Room Air 03/20/17 09:00 97.7 82 18 104/55 96 Room Air 03/20/17 00:00 97.7 89 18 115/64 96 Room Air Intake and Output 03/20/17 03/21/17 19:00 07:00 Intake Total 480 ml Balance 480 ml Intake Oral 480 ml # Voids 3 General Appearance: no acute distress HEENT: normocephalic, atraumatic, PERRL Respiratory/Chest: chest wall non-tender, normal breath sounds, no respiratory distress Breasts: no masses Cardiovascular: normal peripheral pulses, normal rate, regular rhythm, no JVD Abdomen: normal bowel sounds, soft, non tender, no organomegaly, non distended Genitourinary: normal external genitalia Extremities: no cyanosis Neurologic/Psychiatric: abnormal CN, motor weakness, sensory deficit Musculoskeletal: atrophy Current Medications Medications (Trade) Dose Ordered Sig/Nancy Route PRN Reason Start Time Stop Time Status Last Admin Dose Admin Acetaminophen (Tylenol) 650 mg Q4H PRN ORAL MILD PAIN / T>100.5 03/06/17 21:00 04/05/17 20:59 03/18/17 16:35 Heparin Sodium (Porcine) (Heparin 5000 units/ml) 5,000 units EVERY 12 HOURS SUBQ 03/06/17 21:00 04/05/17 20:59 03/19/17 08:24 Lorazepam (Ativan 2mg/ml 1ml) 1 mg Q4H PRN IM For Anxiety 03/14/17 23:15 03/21/17 23:14 03/18/17 02:06 Olanzapine (ZyPREXA) 10 mg BEDTIME ORAL 03/17/17 21:00 04/16/17 20:59 03/20/17 20:07 Ranitidine HCl (Zantac) 150 mg TWICE A DAY ORAL 03/07/17 09:00 04/06/17 08:59 03/18/17 18:37 Valproic Acid (Depakene) 750 mg BEDTIME ORAL 03/17/17 21:00 04/16/17 20:59 03/20/17 20:07 CHRISTIAN BELL Mar 20, 2017 22:47
[2017-03-21] VITALS: BP 98/55
[2017-03-21 04:00] VITALS: BP 98/48
[2017-03-21 08:00] VITALS: BP 108/60
[2017-03-21] MEDS: Heparin 5000 units/ml inj SUBQ SCH ×2 (10:02→21:00)
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
[2017-03-21 11:38] VITALS: BP 106/42
[2017-03-21 15:57] VITALS: BP 110/65
--- NOTE | 2017-03-21 17:30 | General Progress Note ---
Assessment/Plan Status: stable, progressing Assessment/Plan DD - depakote -zyprexa Subjective Neurologic/Psychiatric: Reports: anxiety, depressed, emotional problems Allergies: Coded Allergies: CHOCOLATE FLAVOR (Verified Allergy, Unknown, 03/12/17) Subjective less agitated today and calmer. stated that she wants to go outside. Objective Last 24 Hour Vital Signs Date Time Temp Pulse Resp B/P (MAP) Pulse Ox O2 Delivery O2 Flow Rate FiO2 03/21/17 15:57 97.8 99 20 110/65 95 Room Air 03/21/17 11:38 97.7 94 20 106/42 Room Air 03/21/17 08:00 97.5 101 18 108/60 98 Room Air 03/21/17 04:00 97.8 95 18 98/48 100 Room Air 03/21/17 00:00 97.4 85 18 98/55 99 Room Air 03/20/17 20:00 97.3 83 18 99/61 98 Room Air Intake and Output 03/21/17 03/22/17 19:00 07:00 Intake Total 450 ml Balance 450 ml Intake Oral 450 ml # Voids 1 Height (Feet): 5 Height (Inches): 3.00 Weight (Pounds): 95 General Appearance: no apparent distress, alert, thin Neurologic: alert, oriented x 3, responsive, depressed affect Kerline Ray M.D. Mar 21, 2017 17:30
[2017-03-21 20:00] VITALS: BP 105/60
--- NOTE | 2017-03-21 20:08 | Infectious Diseases Prog Note ---
Assessment/Plan Assessment/Plan A; Pyuria with no evid of urinary tract infection/ UCx : no sig growth Multiple sclerosis FTT Dysphagia P; -Continue to monitor off antibiotic -s/p 4d Levaquin 03/12 -SP IV Rocephin d # 2 ( 03/07 ) Monitor CBC/BMP, temperatures Discussed with RN Subjective Allergies: Coded Allergies: CHOCOLATE FLAVOR (Verified Allergy, Unknown, 03/12/17) Subjective afebrile off abx VSS no labs since 03/09 Objective Vital Signs Last 24 Hour Vital Signs Date Time Temp Pulse Resp B/P (MAP) Pulse Ox O2 Delivery O2 Flow Rate FiO2 03/21/17 15:57 97.8 99 20 110/65 95 Room Air 03/21/17 11:38 97.7 94 20 106/42 Room Air 03/21/17 08:00 97.5 101 18 108/60 98 Room Air 03/21/17 04:00 97.8 95 18 98/48 100 Room Air 03/21/17 00:00 97.4 85 18 98/55 99 Room Air Height (Feet): 5 Height (Inches): 3.00 Weight (Pounds): 95 Objective General Appearance: no acute distress HEENT: mucous membranes moist Respiratory/Chest: lungs clear Cardiovascular: normal rate Abdomen: soft, non tender Extremities: no edema Neurologic/Psychiatric: disoriented reviewed reviewed Current Medications Medications (Trade) Dose Ordered Sig/Nancy Route PRN Reason Start Time Stop Time Status Last Admin Dose Admin Acetaminophen (Tylenol) 650 mg Q4H PRN ORAL MILD PAIN / T>100.5 03/06/17 21:00 04/05/17 20:59 03/18/17 16:35 Heparin Sodium (Porcine) (Heparin 5000 units/ml) 5,000 units EVERY 12 HOURS SUBQ 03/06/17 21:00 04/05/17 20:59 03/21/17 10:02 Lorazepam (Ativan 2mg/ml 1ml) 1 mg Q4H PRN IM For Anxiety 03/14/17 23:15 03/21/17 23:14 03/18/17 02:06 Olanzapine (ZyPREXA) 10 mg BEDTIME ORAL 03/17/17 21:00 04/16/17 20:59 03/20/17 20:07 Ranitidine HCl (Zantac) 150 mg TWICE A DAY ORAL 03/07/17 09:00 04/06/17 08:59 03/21/17 09:50 Valproic Acid (Depakene) 750 mg BEDTIME ORAL 03/17/17 21:00 04/16/17 20:59 03/20/17 20:07 Dinorah Paul M.D. Mar 21, 2017 20:08
[2017-03-22] VITALS: BP 99/58
[2017-03-22 04:00] VITALS: BP 102/61
[2017-03-22] MEDS: Heparin 5000 units/ml inj SUBQ SCH ×3 (08:46→22:44)
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
[2017-03-22 12:09] VITALS: BP 101/59
[2017-03-22 15:57] VITALS: BP 108/55
[2017-03-22 20:00] VITALS: BP 105/60
[2017-03-23] VITALS: BP 102/57
[2017-03-23 04:00] VITALS: BP 102/45
[2017-03-23 08:00] VITALS: BP 125/74
[2017-03-23] MEDS: Heparin 5000 units/ml inj SUBQ SCH ×2 (08:16→21:00)
[2017-03-23 12:00] VITALS: BP 95/56
[2017-03-23 16:10] VITALS: BP 105/59
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
[2017-03-23 21:00] VITALS: BP 111/59
--- NOTE | 2017-03-24 00:22 | General Progress Note ---
Assessment/Plan Status: stable, progressing Assessment/Plan DD - depmireyate -zyprexa Subjective Date patient seen: Mar 23, 2017 Neurologic/Psychiatric: Reports: anxiety, depressed, emotional problems Allergies: Coded Allergies: CHOCOLATE FLAVOR (Verified Allergy, Unknown, 03/12/17) Subjective less agitated today and calmer. stated that she wants to go outside. Objective Last 24 Hour Vital Signs Date Time Temp Pulse Resp B/P (MAP) Pulse Ox O2 Delivery O2 Flow Rate FiO2 03/23/17 21:00 97.1 82 18 111/59 94 Room Air 03/23/17 16:10 98.0 75 20 105/59 95 Room Air 03/23/17 12:00 97.7 73 18 95/56 97 Room Air 03/23/17 08:00 97.9 86 17 125/74 95 Room Air 03/23/17 04:00 97.3 84 18 102/45 99 Room Air 03/23/17 02:35 96.4 Height (Feet): 5 Height (Inches): 3.00 Weight (Pounds): 95 General Appearance: no apparent distress, alert, thin Neurologic: alert, oriented x 3, responsive, depressed affect Kerline Ray M.D. Mar 24, 2017 00:22
[2017-03-24 05:00] VITALS: BP 101/60
[2017-03-24 08:00] VITALS: BP 125/74
[2017-03-24] MEDS: Heparin 5000 units/ml inj SUBQ SCH ×2 (08:14→20:44)
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
[2017-03-24 12:00] VITALS: BP 109/65
--- NOTE | 2017-03-24 14:59 | General Progress Note ---
Assessment/Plan Status: stable, progressing Assessment/Plan DD, friedreich's ataxia - depakote -zyprexa -patio privilege Subjective Neurologic/Psychiatric: Reports: anxiety, depressed, emotional problems Allergies: Coded Allergies: CHOCOLATE FLAVOR (Verified Allergy, Unknown, 03/12/17) Subjective less agitated today and calmer. stated that she wants to go outside. Objective Last 24 Hour Vital Signs Date Time Temp Pulse Resp B/P (MAP) Pulse Ox O2 Delivery O2 Flow Rate FiO2 03/24/17 08:00 96.6 18 125/74 97 Room Air 03/24/17 05:00 97.7 78 18 101/60 96 Room Air 03/23/17 21:00 97.1 82 18 111/59 94 Room Air 03/23/17 16:10 98.0 75 20 105/59 95 Room Air Intake and Output 03/24/17 03/25/17 19:00 07:00 Intake Total 350 ml Balance 350 ml Intake Oral 350 ml Height (Feet): 5 Height (Inches): 3.00 Weight (Pounds): 95 General Appearance: no apparent distress, alert, thin Neurologic: alert, oriented x 3, responsive, depressed affect Kerline Ray M.D. Mar 24, 2017 14:59
[2017-03-24 16:00] VITALS: BP 104/64
--- NOTE | 2017-03-24 18:21 | Infectious Diseases Prog Note ---
Assessment/Plan Assessment/Plan A; Pyuria with no evid of urinary tract infection/ UCx : no sig growth Multiple sclerosis FTT Dysphagia P; -Continue to monitor off antibiotic -s/p 4d Levaquin 03/12 -SP IV Rocephin d # 2 ( 03/07 ) Monitor CBC/BMP, temperatures Discussed with RN Subjective Allergies: Coded Allergies: CHOCOLATE FLAVOR (Verified Allergy, Unknown, 03/12/17) Subjective afebrile off abx VSS no labs since 03/09 Objective Vital Signs Last 24 Hour Vital Signs Date Time Temp Pulse Resp B/P (MAP) Pulse Ox O2 Delivery O2 Flow Rate FiO2 03/24/17 16:00 97.5 20 104/64 98 Room Air 03/24/17 12:00 97.2 20 109/65 98 Room Air 03/24/17 08:00 96.6 18 125/74 97 Room Air 03/24/17 05:00 97.7 78 18 101/60 96 Room Air 03/23/17 21:00 97.1 82 18 111/59 94 Room Air Height (Feet): 5 Height (Inches): 3.00 Weight (Pounds): 95 Objective General Appearance: no acute distress HEENT: mucous membranes moist Respiratory/Chest: lungs clear Cardiovascular: normal rate Abdomen: soft, non tender Extremities: no edema Neurologic/Psychiatric: disoriented reviewed reviewed Current Medications Medications (Trade) Dose Ordered Sig/Nancy Route PRN Reason Start Time Stop Time Status Last Admin Dose Admin Acetaminophen (Tylenol) 650 mg Q4H PRN ORAL MILD PAIN / T>100.5 03/06/17 21:00 04/05/17 20:59 03/23/17 01:36 Heparin Sodium (Porcine) (Heparin 5000 units/ml) 5,000 units EVERY 12 HOURS SUBQ 03/06/17 21:00 04/05/17 20:59 03/22/17 22:44 Olanzapine (ZyPREXA) 10 mg BEDTIME ORAL 03/17/17 21:00 04/16/17 20:59 03/22/17 22:50 Ranitidine HCl (Zantac) 150 mg TWICE A DAY ORAL 03/07/17 09:00 04/06/17 08:59 03/24/17 17:24 Valproic Acid (Depakene) 750 mg BEDTIME ORAL 03/17/17 21:00 04/16/17 20:59 03/22/17 22:50 Dinorah Paul M.D. Mar 24, 2017 18:21
[2017-03-24 19:57] VITALS: BP 107/75
[2017-03-25] VITALS: BP 112/71
[2017-03-25 04:00] VITALS: BP 101/53
[2017-03-25 08:25] VITALS: BP 96/64
[2017-03-25] MEDS: Heparin 5000 units/ml inj SUBQ SCH ×2 (08:27→23:25)
[2017-03-25 12:00] VITALS: BP 93/61
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
[2017-03-25 16:00] VITALS: BP 105/44
[2017-03-25 20:00] VITALS: BP 102/51
[2017-03-26] VITALS: BP 103/55
[2017-03-26] MEDS: Heparin 5000 units/ml inj SUBQ SCH ×2 (10:47→20:44)
--- NOTE | 2017-03-26 12:17 | Infectious Diseases Prog Note ---
Assessment/Plan Assessment/Plan A; Pyuria Multiple sclerosis FTT Dysphagia P; observe off antibiotic Subjective ROS Limited/Unobtainable: Yes Respiratory: Reports: no symptoms Gastrointestinal/Abdominal: Reports: no symptoms Allergies: Coded Allergies: CHOCOLATE FLAVOR (Verified Allergy, Unknown, 03/12/17) Objective Vital Signs Last 24 Hour Vital Signs Date Time Temp Pulse Resp B/P (MAP) Pulse Ox O2 Delivery O2 Flow Rate FiO2 03/26/17 00:00 97.7 79 16 103/55 95 Room Air 03/25/17 20:00 97.5 86 18 102/51 97 Room Air 03/25/17 16:00 97.5 85 19 105/44 97 Room Air Height (Feet): 5 Height (Inches): 3.00 Weight (Pounds): 95 General Appearance: no acute distress HEENT: mucous membranes moist Respiratory/Chest: lungs clear Cardiovascular: normal rate Abdomen: soft, non tender Extremities: no edema Neurologic/Psychiatric: alert, responsive, disoriented Current Medications Medications (Trade) Dose Ordered Sig/Nancy Route PRN Reason Start Time Stop Time Status Last Admin Dose Admin Acetaminophen (Tylenol) 650 mg Q4H PRN ORAL MILD PAIN / T>100.5 03/06/17 21:00 04/05/17 20:59 03/24/17 20:28 Heparin Sodium (Porcine) (Heparin 5000 units/ml) 5,000 units EVERY 12 HOURS SUBQ 03/06/17 21:00 04/05/17 20:59 03/26/17 10:47 Olanzapine (ZyPREXA) 10 mg BEDTIME ORAL 03/17/17 21:00 04/16/17 20:59 03/25/17 23:04 Ranitidine HCl (Zantac) 150 mg TWICE A DAY ORAL 03/07/17 09:00 04/06/17 08:59 03/26/17 10:45 Valproic Acid (Depakene) 750 mg BEDTIME ORAL 03/17/17 21:00 04/16/17 20:59 03/25/17 23:04 KEMI MALDONADO Mar 26, 2017 12:17
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
--- NOTE | 2017-03-26 18:34 | General Progress Note ---
Assessment/Plan Status: stable Assessment/Plan DD, friedreich's ataxia - depakote -zyprexa -patio privilege Subjective Neurologic/Psychiatric: Reports: anxiety, depressed, emotional problems Allergies: Coded Allergies: CHOCOLATE FLAVOR (Verified Allergy, Unknown, 03/12/17) Subjective the pt was agitated today. disrobed and wrapped the sheet around her head Objective Last 24 Hour Vital Signs Date Time Temp Pulse Resp B/P (MAP) Pulse Ox O2 Delivery O2 Flow Rate FiO2 03/26/17 00:00 97.7 79 16 103/55 95 Room Air 03/25/17 20:00 97.5 86 18 102/51 97 Room Air Height (Feet): 5 Height (Inches): 3.00 Weight (Pounds): 95 General Appearance: no apparent distress, alert, thin Neurologic: alert, oriented x 3, depressed affect Kerline Ray M.D. Mar 26, 2017 18:34
[2017-03-26 20:00] VITALS: BP 104/58
[2017-03-27] VITALS: BP 98/56
[2017-03-27 08:27] VITALS: BP 102/54
[2017-03-27] MEDS: Heparin 5000 units/ml inj SUBQ SCH ×2 (08:34→21:00)
[2017-03-27 16:55] VITALS: BP 110/60
[2017-03-27 20:00] VITALS: BP 105/55
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
[2017-03-28] VITALS: BP 96/47
[2017-03-28 03:57] VITALS: BP 100/53
[2017-03-28 08:15] VITALS: BP 97/51
[2017-03-28] MEDS: Heparin 5000 units/ml inj SUBQ SCH ×2 (09:00→21:00)
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
--- NOTE | 2017-03-28 12:42 | Infectious Diseases Prog Note ---
Assessment/Plan Assessment/Plan ASSESSMENT: Pyuria with no evid of urinary tract infection/ UCx : no sig growth Multiple sclerosis FTT Dysphagia PLAN: -Continue to monitor off antibiotic -s/p 4d Levaquin 03/12 -SP IV Rocephin d # 2 ( 03/07 ) Monitor CBC/BMP, temperatures aspiration precautions DC planning Subjective Allergies: Coded Allergies: CHOCOLATE FLAVOR (Verified Allergy, Unknown, 03/12/17) Subjective remains afebrile appears comfortable Objective Vital Signs Last 24 Hour Vital Signs Date Time Temp Pulse Resp B/P (MAP) Pulse Ox O2 Delivery O2 Flow Rate FiO2 03/28/17 08:15 96.4 79 18 97/51 97 Room Air 03/28/17 03:57 96.6 73 20 100/53 97 Room Air 03/28/17 00:00 97.7 77 18 96/47 97 Room Air 03/27/17 20:00 97.7 86 18 105/55 94 Room Air 03/27/17 16:55 97.0 86 18 110/60 97 Room Air Height (Feet): 5 Height (Inches): 3.00 Weight (Pounds): 95 General Appearance: no acute distress Respiratory/Chest: no respiratory distress Cardiovascular: normal rate, regular rhythm Abdomen: normal bowel sounds, soft, non tender, non distended Current Medications Medications (Trade) Dose Ordered Sig/Nancy Route PRN Reason Start Time Stop Time Status Last Admin Dose Admin Acetaminophen (Tylenol) 650 mg Q4H PRN ORAL MILD PAIN / T>100.5 03/06/17 21:00 04/05/17 20:59 03/26/17 20:43 Heparin Sodium (Porcine) (Heparin 5000 units/ml) 5,000 units EVERY 12 HOURS SUBQ 03/06/17 21:00 04/05/17 20:59 03/27/17 08:34 Olanzapine (ZyPREXA) 10 mg BEDTIME ORAL 03/17/17 21:00 04/16/17 20:59 03/26/17 20:42 Ranitidine HCl (Zantac) 150 mg TWICE A DAY ORAL 03/07/17 09:00 04/06/17 08:59 03/27/17 18:57 Valproic Acid (Depakene) 750 mg BEDTIME ORAL 03/17/17 21:00 04/16/17 20:59 03/26/17 20:44 HANY TIDWELL Mar 28, 2017 12:42
--- NOTE | 2017-03-28 17:34 | General Progress Note ---
Assessment/Plan Status: stable Assessment/Plan DD, friedreich's ataxia - depakote -zyprexa -patio privilege Subjective Neurologic/Psychiatric: Reports: anxiety, depressed, emotional problems Allergies: Coded Allergies: CHOCOLATE FLAVOR (Verified Allergy, Unknown, 03/12/17) Subjective the pt is doing well today. however she is sad asked to go out when the staff helping she became agitated and asked them not to touch her Objective Last 24 Hour Vital Signs Date Time Temp Pulse Resp B/P (MAP) Pulse Ox O2 Delivery O2 Flow Rate FiO2 03/28/17 08:15 96.4 79 18 97/51 97 Room Air 03/28/17 03:57 96.6 73 20 100/53 97 Room Air 03/28/17 00:00 97.7 77 18 96/47 97 Room Air 03/27/17 20:00 97.7 86 18 105/55 94 Room Air Intake and Output 03/28/17 03/29/17 19:00 07:00 Intake Total 300 ml Balance 300 ml Intake Oral 300 ml # Voids 2 Height (Feet): 5 Height (Inches): 3.00 Weight (Pounds): 95 General Appearance: no apparent distress, alert, thin Neurologic: alert, oriented x 3, responsive, depressed affect Kerline Ray M.D. Mar 28, 2017 17:34
[2017-03-29 04:00] VITALS: BP 92/68
[2017-03-29 08:00] VITALS: BP_SYST 109; BP_SYST 115; BP_DIAS 58; BP_DIAS 70
[2017-03-29] MEDS: Heparin 5000 units/ml inj SUBQ SCH ×2 (08:21→21:00)
[2017-03-29 12:00] VITALS: BP 94/66
[2017-03-29 16:00] VITALS: BP 96/53
[2017-03-29 20:00] VITALS: BP 107/57
--- NOTE | 2017-03-29 22:55 | General Progress Note ---
Assessment/Plan Status: stable Assessment/Plan DD, friedreich's ataxia - depakote -zyprexa -patio privilege Subjective Constitutional: Reports: malaise, weakness Neurologic/Psychiatric: Reports: anxiety, depressed, emotional problems Allergies: Coded Allergies: CHOCOLATE FLAVOR (Verified Allergy, Unknown, 03/12/17) Subjective the pt is doing well today. calm no ad Objective Last 24 Hour Vital Signs Date Time Temp Pulse Resp B/P (MAP) Pulse Ox O2 Delivery O2 Flow Rate FiO2 03/29/17 20:00 98.2 83 18 107/57 Room Air 03/29/17 16:00 97.8 79 20 96/53 97 Room Air 03/29/17 12:00 97.7 74 19 94/66 96 Room Air 03/29/17 08:00 97.1 71 18 109/58 98 Room Air 03/29/17 04:00 98.1 71 19 92/68 99 Room Air Height (Feet): 5 Height (Inches): 3.00 Weight (Pounds): 95 General Appearance: no apparent distress, alert, thin Neurologic: alert, oriented x 3, responsive, depressed affect Kerline Ray M.D. Mar 29, 2017 22:55
--- NOTE | 2017-03-29 23:08 | Pulmonology Progress Note ---
Assessment/Plan Problems: (1) Multiple sclerosis (2) Failure to thrive Assessment/Plan dc planning symptomatic treatment dc planning in progress Subjective ROS Limited/Unobtainable: No Constitutional: Reports: no symptoms HEENT: Repors: no symptoms Respiratory: Reports: no symptoms Allergies: Coded Allergies: CHOCOLATE FLAVOR (Verified Allergy, Unknown, 03/12/17) Objective Last 24 Hour Vital Signs Date Time Temp Pulse Resp B/P (MAP) Pulse Ox O2 Delivery O2 Flow Rate FiO2 03/29/17 20:00 98.2 83 18 107/57 Room Air 03/29/17 16:00 97.8 79 20 96/53 97 Room Air 03/29/17 12:00 97.7 74 19 94/66 96 Room Air 03/29/17 08:00 97.1 71 18 109/58 98 Room Air 03/29/17 04:00 98.1 71 19 92/68 99 Room Air General Appearance: WD/WN HEENT: normocephalic, atraumatic Respiratory/Chest: chest wall non-tender, lungs clear Breasts: no masses Cardiovascular: normal rate Extremities: no cyanosis, no clubbing 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 Current Medications Medications (Trade) Dose Ordered Sig/Nancy Route PRN Reason Start Time Stop Time Status Last Admin Dose Admin Acetaminophen (Tylenol) 650 mg Q4H PRN ORAL MILD PAIN / T>100.5 03/06/17 21:00 04/05/17 20:59 03/26/17 20:43 Heparin Sodium (Porcine) (Heparin 5000 units/ml) 5,000 units EVERY 12 HOURS SUBQ 03/06/17 21:00 04/05/17 20:59 03/27/17 08:34 Olanzapine (ZyPREXA) 10 mg BEDTIME ORAL 03/17/17 21:00 04/16/17 20:59 03/26/17 20:42 Ranitidine HCl (Zantac) 150 mg TWICE A DAY ORAL 03/07/17 09:00 04/06/17 08:59 03/29/17 08:21 Valproic Acid (Depakene) 750 mg BEDTIME ORAL 03/17/17 21:00 04/16/17 20:59 03/26/17 20:44 CHRISTIAN BELL Mar 29, 2017 23:08
--- NOTE | 2017-03-29 23:18 | Infectious Diseases Prog Note ---
Assessment/Plan Assessment/Plan ASSESSMENT: Pyuria with no evid of urinary tract infection/ UCx : no sig growth Multiple sclerosis FTT Dysphagia PLAN: -Continue to monitor off antibiotic -s/p 4d Levaquin 03/12 -SP IV Rocephin d # 2 ( 03/07 ) Monitor CBC/BMP, temperatures aspiration precautions DC planning Subjective Allergies: Coded Allergies: CHOCOLATE FLAVOR (Verified Allergy, Unknown, 03/12/17) Subjective remains afebrile appears comfortable Objective Vital Signs Last 24 Hour Vital Signs Date Time Temp Pulse Resp B/P (MAP) Pulse Ox O2 Delivery O2 Flow Rate FiO2 03/29/17 20:00 98.2 83 18 107/57 Room Air 03/29/17 16:00 97.8 79 20 96/53 97 Room Air 03/29/17 12:00 97.7 74 19 94/66 96 Room Air 03/29/17 08:00 97.1 71 18 109/58 98 Room Air 03/29/17 04:00 98.1 71 19 92/68 99 Room Air Height (Feet): 5 Height (Inches): 3.00 Weight (Pounds): 95 General Appearance: no acute distress Respiratory/Chest: no respiratory distress Cardiovascular: normal rate, regular rhythm Abdomen: normal bowel sounds, soft, non tender, non distended Current Medications Medications (Trade) Dose Ordered Sig/Nancy Route PRN Reason Start Time Stop Time Status Last Admin Dose Admin Acetaminophen (Tylenol) 650 mg Q4H PRN ORAL MILD PAIN / T>100.5 03/06/17 21:00 04/05/17 20:59 03/26/17 20:43 Heparin Sodium (Porcine) (Heparin 5000 units/ml) 5,000 units EVERY 12 HOURS SUBQ 03/06/17 21:00 04/05/17 20:59 03/27/17 08:34 Olanzapine (ZyPREXA) 10 mg BEDTIME ORAL 03/17/17 21:00 04/16/17 20:59 03/26/17 20:42 Ranitidine HCl (Zantac) 150 mg TWICE A DAY ORAL 03/07/17 09:00 04/06/17 08:59 03/29/17 08:21 Valproic Acid (Depakene) 750 mg BEDTIME ORAL 03/17/17 21:00 04/16/17 20:59 03/26/17 20:44 HANY TIDWELL Mar 29, 2017 23:18
[2017-03-30 08:00] VITALS: BP 99/55
[2017-03-30] MEDS: Heparin 5000 units/ml inj SUBQ SCH (09:00)
[2017-03-30 16:00] VITALS: BP 101/62
[2017-03-30] MEDS ORDERED: ZYPREXA10 MG ORAL (16:10)
[2017-03-30] MEDS ORDERED: DEPAKENE250 MG ORAL (16:11)
--- NOTE | 2017-03-30 22:19 | Pulmonology Progress Note ---
Assessment/Plan Problems: (1) Multiple sclerosis (2) Failure to thrive Assessment/Plan dc planning symptomatic treatment dc planning in progress Subjective ROS Limited/Unobtainable: No Constitutional: Reports: no symptoms HEENT: Repors: no symptoms Allergies: Coded Allergies: CHOCOLATE FLAVOR (Verified Allergy, Unknown, 03/12/17) Objective Last 24 Hour Vital Signs Date Time Temp Pulse Resp B/P (MAP) Pulse Ox O2 Delivery O2 Flow Rate FiO2 03/30/17 16:00 97.5 98 19 101/62 98 Room Air 03/30/17 08:00 97.0 79 18 99/55 Room Air Intake and Output 03/30/17 03/31/17 19:00 07:00 Intake Total 590 ml Balance 590 ml Intake Oral 590 ml # Voids 6 General Appearance: WD/WN, no acute distress HEENT: atraumatic Respiratory/Chest: lungs clear, normal breath sounds Cardiovascular: normal peripheral pulses, normal rate Abdomen: normal bowel sounds, no scars 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
--- NOTE | 2017-03-30 22:37 | General Progress Note ---
Assessment/Plan Status: stable, progressing Assessment/Plan DD, friedreich's ataxia - depakote -zyprexa -patio privilege Subjective Neurologic/Psychiatric: Reports: anxiety, depressed, emotional problems Allergies: Coded Allergies: CHOCOLATE FLAVOR (Verified Allergy, Unknown, 03/12/17) Subjective the pt is doing well today. calm no ad Objective Last 24 Hour Vital Signs Date Time Temp Pulse Resp B/P (MAP) Pulse Ox O2 Delivery O2 Flow Rate FiO2 03/30/17 16:00 97.5 98 19 101/62 98 Room Air 03/30/17 08:00 97.0 79 18 99/55 Room Air Intake and Output 03/30/17 03/31/17 19:00 07:00 Intake Total 590 ml Balance 590 ml Intake Oral 590 ml # Voids 6 Height (Feet): 5 Height (Inches): 3.00 Weight (Pounds): 95 General Appearance: no apparent distress, alert, thin Neurologic: alert, oriented x 3, responsive, depressed affect Kerline Ray M.D. Mar 30, 2017 22:37
--- NOTE | 2017-03-31 17:42 | Discharge Summary ---
Discharge Summary Hospital Course Date of Admission Mar 06, 2017 at 16:24 Date of Discharge Mar 30, 2017 at 18:45 Admitting Diagnosis failure to thrive HPI Kierra Hunter is a 27 year old female who was admitted on Mar 06, 2017 at 16: 24 for Failure To Thrive Hospital Course [id number] Discharge Discharge Disposition Patient was discharged to Home with Home Health(06) Discharge Diagnoses: Ailyn Yao NP Mar 31, 2017 17:42
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
--- NOTE | 2017-04-02 18:10 | Cardiology Report ---
APPROVED REPORT EKG Measurement Heart [id number] MI [id number] Sinus rhythm with premature atrial complexes Possible Left atrial enlargement Right axis deviation Right ventricular hypertrophy Nonspecific ST abnormality Abnormal QRS-T angle, consider primary T wave abnormality Abnormal ECG
== END 2017-03-30 18:45 | disposition home health service (06) | DRG 52 ==
LOC: EMR 16:15 → EDBEDREQ 16:21 → 4E 16:24 → EDBEDREQ 16:29 → 4W 03-21 08:24
DX: G93.40 Encephalopathy, unspecified (principal); E43 Unspecified severe protein-calorie malnutrition; N39.0 Urinary tract infection, site not specified; G35 Multiple sclerosis; R13.10 Dysphagia, unspecified; R62.7 Adult failure to thrive; Z68.1 Body mass index [BMI] 19.9 or less, adult; Z99.3 Dependence on wheelchair; F99 Mental disorder, not otherwise specified; F79 Unspecified intellectual disabilities; G82.20 Paraplegia, unspecified; F41.8 Other specified anxiety disorders; R47.1 Dysarthria and anarthria; R45.1 Restlessness and agitation; G11.1 Early-onset cerebellar ataxia
CPT/HCPCS: 36415; 71010; 74230; 80048; 80053; 80061; 80300; 81003; 81025; 83036; 84443; 85007; 85025; 87081; 87086; 93005; 99285